=== PATIENT | male | born 1940 | race Caucasian/White ===

== ENCOUNTER 2017-09-07 06:00 | Day surgery (SDC) | payer OTHER ==
[~2017-09-07 06:00] MED LIST: ACETAMINOPHEN 325 MG TABLET (FP) PO PRN
[2017-09-07 06:17] VITALS: TEMP 97.6
[2017-09-07 06:21] VITALS: BMI 29.5
[2017-09-07] MEDS ORDERED: FLURBIPROFEN 0.03% OPHTH SOLN 2.5 ML BOTTLE ONE (06:32)
[2017-09-07] MEDS ORDERED: CYCLOPENTOLATE HCL 1% OPHTH SOLN 2 ML BOTTLE ONE (06:32)
[2017-09-07] MEDS ORDERED: PHENYLEPHRINE 2.5% OPHTH SOLN 15 ML BOTTLE ONE (06:32)
[2017-09-07] MEDS ORDERED: TROPICAMIDE 1% OPHTH SOLN 15 ML BOTTLE ONE (06:32)
[2017-09-07] MEDS ORDERED: CIPROFLOXACIN 0.3% EYE DROPS 5 ML BOTTLE ONE (06:32)
[2017-09-07] MEDS: CYCLOPENTOLATE HCL 1% OPHTH SOLN 2 ML BOTTLE OP SCH ×3 (06:42→07:08)
[2017-09-07] MEDS: CIPROFLOXACIN HCL 0.3% OPHTH 2.5ML BOTTLE OP SCH ×3 (06:42→07:08)
[2017-09-07] MEDS: PHENYLEPHRINE 2.5% OPHTH SOLN 15 ML BOTTLE OP SCH ×3 (06:42→07:09)
[2017-09-07] MEDS: FLURBIPROFEN 0.03% OPHTH SOLN 2.5 ML BOTTLE OP SCH ×3 (06:42→07:08)
[2017-09-07] MEDS: TROPICAMIDE 1% OPHTH SOLN 15 ML BOTTLE OP SCH ×3 (06:42→07:09)
[2017-09-07] MEDS ORDERED: VANCOMYCIN 500 MG VIAL (RESTRICTED TO ID ONLY) ONE (07:27)
[2017-09-07] MEDS ORDERED: LIDOCAINE HCL 2% JELLY (5 ML/TUBE) ONE (07:27)
[2017-09-07] MEDS ORDERED: EPINEPHrine/PF 1 MG/1 ML (1:1,000) AMPULE ONE (07:27)
[2017-09-07] MEDS ORDERED: TRYPAN BLUE 0.5 ML DISP.SYRIN ONE (07:27)
[2017-09-07] MEDS ORDERED: WATER FOR INJ,STERILE 10 ML ONE (07:27)
[2017-09-07] MEDS ORDERED: LIDOCAINE HCL/PF 1% SDV 5ML VIAL ONE (07:27)
[2017-09-07] MEDS ORDERED: POVIDONE-IODINE 5% OPHTHALMIC PREP 30 ML SOLUTION ONE (07:28)
[2017-09-07] MEDS ORDERED: ePHEDrine SULFATE 50 MG/1 ML AMPULE ONE (07:40)
[2017-09-07] MEDS ORDERED: SUCCINYLCHOLINE CHLORIDE 200 MG/10 ML VIAL ONE (07:40)
[2017-09-07] MEDS ORDERED: LIDOCAINE HCL/PF 2% SDV 5ML VIAL ONE (07:40)
[2017-09-07] MEDS ORDERED: DEXAMETHASONE SOD PHOSPHATE 4 MG/1 ML VIAL ONE (07:40)
[2017-09-07] MEDS ORDERED: PROPOFOL 20 ML ONE ×2 (07:40)
[2017-09-07] MEDS ORDERED: MIDAZOLAM HCL 2 MG/2 ML SINGLE DOSE VIAL ONE (07:40)
[2017-09-07] MEDS ORDERED: SODIUM CHLORIDE 0.9% P/F 10 ML VIAL IJ ONE (07:43)
[2017-09-07] MEDS ORDERED: LIDOCAINE HCL 2% JELLY (5 ML/TUBE) TP ONE (07:59)
[2017-09-07] MEDS ORDERED: POVIDONE-IODINE 5% OPHTHALMIC PREP 30 ML SOLUTION OD ONE (08:10)
[2017-09-07] MEDS ORDERED: CHONDROITIN SU A/HYALUR SOD 1 KIT IO ONE (08:17)
[2017-09-07] MEDS ORDERED: BSS (NA/CA/MG/K) BALANCED SALT SOLUTION OPHTH SOLN 15 ML BOTTLE OD ONE (08:17)
[2017-09-07] MEDS ORDERED: TRYPAN BLUE 0.5 ML DISP.SYRIN IO ONE (08:17)
[2017-09-07] MEDS ORDERED: LIDOCAINE HCL 1% PRESERVATIVE FREE - 30ML VIAL IO ONE (08:17)
[2017-09-07] MEDS ORDERED: EPINEPHrine/PF 1 MG/1 ML (1:1,000) AMPULE IO ONE (08:25)
--- NOTE | 2017-09-07 09:28 | SPEC ---
DATE OF SURGERY: 09/07/2017 OPERATION: Phacoemulsification of right cataract, capsular staining with Trypan blue and intraocular lens implantation, lens used [id number], 22.0 Diopter power, Serial No. [id number]. PREOPERATIVE DIAGNOSIS: Mature cataract right eye. POSTOPERATIVE DIAGNOSIS: Mature cataract right eye. SURGEON: Syed Barrientos M.D. ANESTHESIA: Topical MAC. COMPLICATIONS: None. PROCEDURE: The patient was brought to the operating room and correctly identified along with the operative site as well as correct intraocular lens ulrich. The patient was then prepped and draped in the usual sterile fashion including 5% Betadine solution in the conjunctival sac and an eyelid drape. An eyelid speculum was then placed into the operative eye. The eye was inspected and a poor red reflex was noted. A paracentesis port was created and .5 mL of intracameral preservative-free Lidocaine 1% was given. Beneath an air bubble, the capsule was then stained with Trypan blue. The Trypan blue was then irrigated from the eye with balanced salt solution (BBS). Viscoelastic was injected to inflate the anterior chamber. A temporal clear corneal would was created. A continuous circular capsulorrhexis was performed. The nucleus was then hydro-dissected and hydro-delineated was BSS and removed with phacoemulsification via [id number] approach. The remaining cortical material was irrigated and aspirated from the eye. Viscoelastic was injected in the anterior chamber to inflate the capsular bag. The intraocular lens was then injected into the bag. The Viscoelastic was irrigated and aspirated from the eye. All wounds were tested and found to be watertight. No suture was placed. The intraocular lens was noted to be well centered and covered by the anterior capsular border. Topical Vancomycin was given. The eye was patched and shielded. The patient was discharged from the operating room in stable condition. Ion [id number]
[2017-09-07 09:49] VITALS: BP 123/63; PULSE 84
== END 2017-09-07 09:49 | disposition home or self-care (01) ==
LOC: JASU-SURG 06:00
PROVIDERS: ATTEND Ophthalmology
PROC: 08RJ3JZ Replacement of Right Lens with Synthetic Substitute, Percutaneous Approach (ICD-10-PCS; principal; 2017-09-07 10:00)
DX: H25.091 Other age-related incipient cataract, right eye (principal); H57.8 Other specified disorders of eye and adnexa

== ENCOUNTER 2019-06-28 05:18 | Day surgery (SDC) | payer OTHER ==
[2019-06-27 17:58] VITALS: BMI 29.1
[~2019-06-28 05:18] MED LIST changes: -ACETAMINOPHEN 325 MG TABLET (FP) PO PRN; +LIDOCAINE HCL 1%, 10 MG/ML (20ML VIAL) PNB ONE
[2019-06-28] MEDS ORDERED: LIDOCAINE HCL 1%, 10 MG/ML (20ML VIAL) ONE (12:28)
[2019-06-28] MEDS ORDERED: LIDOCAINE HCL 1%, 10 MG/ML (20ML VIAL) PNB ONE (13:45)
[2019-06-28] MEDS ORDERED: MIDAZOLAM HCL 2 MG/2 ML SINGLE DOSE VIAL ONE (13:57)
[2019-06-28] MEDS ORDERED: PROPOFOL 20 ML ONE (13:59)
[2019-06-28] MEDS ORDERED: SUCCINYLCHOLINE CHLORIDE 200 MG/10 ML SYRINGE ONE (14:00)
[2019-06-28] MEDS ORDERED: ceFAZolin SODIUM 1 GM VIAL ONE (14:08)
--- NOTE | 2019-06-28 15:02 | OP ---
Operative Note - Note: Operative Date: 06/28/19 Pre-Operative Diagnosis: right temporal artery aneurysm Operation: excision of right temporal artery aneurysm Post-Operative Diagnosis: Same as Pre-op Surgeon: Pavel Benites Anesthesia: General Estimated Blood Loss (mls): 30 Operative Report Dictated: Yes
--- NOTE | 2019-06-28 15:04 | HP ---
Admitting History and Physical - Admission Chief Complaint: right temporal artery aneurysm after fall 1 month ago Limitations to Obtaining History: No Limitations - Smoking History Smoking history: Never smoked Have you smoked in the past 12 months: No - Alcohol/Substance Use Hx Alcohol Use: Yes (occasion) Home Medications - Allergies Allergies/Adverse Reactions: Allergies Allergy/AdvReac Type Severity Reaction Status Date / Time No Known Allergies Allergy Verified 06/28/19 10:44 - Home Medications Home Medications: Ambulatory Orders Amlodipine Besylate 10 mg PO HS 06/06/19 Apixaban [Eliquis -] 2.5 mg PO BID 06/06/19 Atorvastatin Ca [Lipitor] 80 mg PO DAILY 06/06/19 Cholecalciferol (Vitamin D3) [Vitamin D -] 1,000 mg PO DAILY 06/06/19 Dapagliflozin Propanediol [Farxiga] 5 mg PO DAILY 06/06/19 Fenofibrate,Micronized [Fenofibrate] 1 tab PO HS 06/06/19 Glimepiride [Amaryl -] 4 mg PO BID 06/06/19 Insulin (Novolog) [Novolog -] 8 units SQ BID 06/06/19 Insulin (Novolog) [Novolog -] 10 units SQ DAILY 06/06/19 Insulin Detemir [Levemir Flextouch] 22 units SQ HS 06/06/19 Losartan-Hctz 100-25 mg Tab 1 tab PO DAILY 06/06/19 Metoprolol Succinate 1 tab PO HS 06/06/19 Ramipril 10 mg PO DAILY 06/06/19 Ranolazine [Ranexa -] 500 mg PO BID 06/06/19 Review of Systems - Review of Systems Constitutional: reports: No Symptoms Eyes: reports: No Symptoms HENT: reports: No Symptoms Neck: reports: No Symptoms Cardiovascular: reports: No Symptoms Respiratory: reports: No Symptoms Gastrointestinal: reports: No Symptoms Genitourinary: reports: No Symptoms Musculoskeletal: reports: No Symptoms Integumentary: reports: No Symptoms Neurological: reports: No Symptoms Endocrine: reports: No Symptoms Hematology/Lymphatic: reports: No Symptoms Psychiatric: reports: No Symptoms Physical Examination Vital Signs: Vital Signs Temperature Pulse Rate Respiratory Rate Blood Pressure O2 Sat by Pulse Oximetry (%) 98 06/28/19 10:51 Constitutional: Yes: Well Nourished, No Distress, Calm Eyes: Yes: WNL, Conjunctiva Clear, EOM Intact HENT: Yes: WNL, Atraumatic, Normocephalic Neck: Yes: WNL, Supple, Trachea Midline Cardiovascular: Yes: WNL, Regular Rate and Rhythm Respiratory: Yes: WNL, Regular, CTA Bilaterally Gastrointestinal: Yes: WNL, Normal Bowel Sounds Musculoskeletal: Yes: WNL Extremities: Yes: WNL Edema: No Peripheral Pulses WNL: Yes Integumentary: Yes: WNL Neurological: Yes: WNL, Alert, Oriented ...Motor Strength: WNL Psychiatric: Yes: WNL Problem List - Problems (1) Aneurysm of superficial temporal artery Assessment/Plan: for right temporal artery aneurysm excision Code(s): I72.8 - ANEURYSM OF OTHER SPECIFIED ARTERIES
[2019-06-28 15:55] VITALS: TEMP 97.5
[2019-06-28 16:26] VITALS: BP 154/67; PULSE 64
--- NOTE | 2019-07-01 20:25 | OP ---
DATE OF OPERATION: 06/28/2019 PREOPERATIVE DIAGNOSIS: Right temporal artery aneurysm. POSTOPERATIVE DIAGNOSIS: Right temporal artery aneurysm. PROCEDURE: Excision of right temporal artery aneurysm. SURGEON: Pavel Cerda DO ANESTHESIA: General. BLOOD LOSS: 20 mL. The patient is an 79-year-old male who had a traumatic fall on the sidewalk about 3-1/2 weeks ago, where he hit the right side of his head on the ground. He then developed this temporal artery aneurysm on the right side of his forehead. He came to multiple appointments to see us in vascular clinic but the aneurysm is not getting smaller and it was decided that he would want it excised. The patient was consented for the procedure, understanding all risks, benefits and alternatives. He was then taken to the operating room. Once in the operating room, he was laid on the operating table in supine manner and the right temporal region was prepped and draped in a sterile surgical manner. Patient was, at this time, administered general anesthesia. We then went ahead and made a 4-cm incision transverse incision over the aneurysm. Bovie electrocautery was used to control hemostasis, and we were able to dissect through all the subcutaneous tissue and down to the fascia. Once that was performed, we saw the aneurysm in the artery with some hematoma and we were able to excise the aneurysm using Bovie electrocautery. There was no bleeding. All bleeding was controlled using Bovie electrocautery. There was minimal bleeding. The hematoma and aneurysm was well encapsulated and the capsule was removed. The wound was well irrigated. A 3-0 Vicryl was used and the subcutaneous tissue was approximated in an interrupted manner. A piece of Surgicel was also placed inside the wound. Prior to that, the skin was closed with 4-0 Biosyn in a subcuticular running fashion. Once closed, bacitracin was placed and 2 simple Steri-Strips, 4 x 4, Tegaderms were placed. Patient tolerated this procedure with no complications. Patient transferred back in stable condition. Total blood loss 20 mL. PAVEL CERDA DO MECHANIC/[id number]
--- NOTE | 2019-07-03 15:31 | PATH ---
Surgical Pathology Report Patient Name: MATT PAULSON [facility]. Rec. #: [id number] /Age/Gender: 1940 (Age: 79) / M Account: [id number] Location: [facility] SUR[facility]ICAL Taken: 06/29/2019 Received: 06/29/2019 Reported: 07/03/2019 Physicians: Pavel Benites Specimen(s) Received REMOVED TISSUE FROM TEMPORAL ARTERY BIOPSY Clinical History Right temporal artery aneurysm Final Diagnosis REMOVED TISSUE, TEMPORAL ARTERY, RIGHT, EXCISION: FIBROVASCULAR TISSUE WITH MODERATE TO SEVERE CALCIFIC ATHEROSCLEROSIS, CHRONIC INFLAMMATION, REACTIVE CHANGES, AND ORGANIZED BLOOD/FIBRIN CLOT. FIBROADIPOSE AND FIBROMUSCULAR TISSUE PRESENT. Electronically Signed Aleyda Pozo M.D. Gross Description Received in formalin labeled "removed tissue from right temporal artery," is a 2.0 x 1.7 x 0.3 cm aggregate of valladares-brown fragments of fibrous tissue and blood clot. The specimen is entirely submitted in one cassette. /06/29/2019 saudi06/29/2019
== END 2019-06-28 16:46 | disposition home or self-care (01) ==
LOC: JASU-SURG 05:18
PROVIDERS: ATTEND Surgery Vascular Surgery
PROC: 03B Upper Arteries, Excision (ICD-10-PCS; principal; 2019-06-28 15:20)
DX: I72.8 Aneurysm of other specified arteries (principal); I10 Essential (primary) hypertension; E11.9 Type 2 diabetes mellitus without complications; I48.91 Unspecified atrial fibrillation
CPT/HCPCS: 82962; 88305-TC; 94760

== ENCOUNTER 2019-08-19 22:04 | Inpatient (IN) | payer OTHER ==
--- NOTE | 2019-08-19 22:08 | PDOC ---
History of Present Illness - General Stated Complaint: SOB Time Seen by Provider: 08/19/19 22:07 History Source: Patient Exam Limitations: No Limitations - History of Present Illness Initial Comments: Pt is an 79 yo M, with PMH of HTN, HDL, IDDM (last A1C 7.1), CAD (s/p CABG, stents x2), and hypothyroidism, who is presenting with complaints of SOB on exertion and non-productive cough since yesterday. Pt can normally ambulate around the house without difficulty, but tonight he had SOB while going from room to room, and felt "a wheeze in my chest that came up to my throat" as he was lying in bed. Pt denies any recent fevers/chills, headache, vision changes, syncope, chest pain, palpitations, orthopnea/PND, nausea/vomiting, abdominal pain, urinary symptoms, diarrhea/constipation, or leg swelling from baseline. Allergies: NKDA PCP: Dr. Neymar Medrano Cards: Dr. Peña (stents placed by Dr. Bolivar, [facility]) Social: Pt denies any cigarette, alcohol, or drug use. Pt denies any recent travel or sick contacts. Surgical: R temporal artery aneurysm removal (Dr. Benites) Family: no relevant history. 08/20/19 01:22 Past History - Travel Traveled outside of the country in the last 30 days: No Close contact w/someone who was outside of country & ill: No - Past Medical History Allergies/Adverse Reactions: Allergies Allergy/AdvReac Type Severity Reaction Status Date / Time No Known Allergies Allergy Verified 06/28/19 10:44 Home Medications: Ambulatory Orders Amlodipine Besylate 10 mg PO HS 06/06/19 Apixaban [Eliquis -] 2.5 mg PO BID 06/06/19 Atorvastatin Ca [Lipitor] 80 mg PO DAILY 06/06/19 Cholecalciferol (Vitamin D3) [Vitamin D -] 1,000 mg PO DAILY 06/06/19 Dapagliflozin Propanediol [Farxiga] 5 mg PO DAILY 06/06/19 Fenofibrate,Micronized [Fenofibrate] 1 tab PO HS 06/06/19 Glimepiride [Amaryl -] 4 mg PO BID 06/06/19 Insulin (Novolog) [Novolog -] 8 units SQ BID 06/06/19 Insulin (Novolog) [Novolog -] 10 units SQ DAILY 06/06/19 Insulin Detemir [Levemir Flextouch] 22 units SQ HS 06/06/19 Losartan-Hctz 100-25 mg Tab 1 tab PO DAILY 06/06/19 Metoprolol Succinate 1 tab PO HS 06/06/19 Ramipril 10 mg PO DAILY 06/06/19 Ranolazine [Ranexa -] 500 mg PO BID 06/06/19 Levothyroxine [Synthroid -] 1 tab PO DAILY 08/17/19 Anemia: No Asthma: No Cancer: No Cardiac Disorders: Yes (STENT X2, CA X2) CVA: No COPD: No CHF: No Dementia: No Diabetes: Yes (IDDM) GI Disorders: No Disorders: No HTN: Yes Hypercholesterolemia: Yes Liver Disease: No Seizures: No Thyroid Disease: Yes - Surgical History Cardiac Surgery: No Cholecystectomy: Yes (OPEN) Lung Surgery: Yes (S/P CARDIAC STENTING) Neurologic Surgery: No Orthopedic Surgery: Yes (RT KNEE ARTHROSCOPY) - Immunization History Immunization Up to Date: Yes - Psycho Social/Smoking Cessation Hx Smoking History: Never smoked Have you smoked in the past 12 months: No Hx Alcohol Use: Yes (occasion) Drug/Substance Use Hx: No Substance Use Type: None Hx Substance Use Treatment: No Respiratory Specific PMHX - Complaint Specific PMHX Angina: Yes Bronchitis: No Pneumonia: No Pulmonary Embolus: No TB (Tuberculosis): No Review of Systems - Review of Systems Able to Perform ROS?: Yes Is the patient limited Greek proficient: No Constitutional: Yes: Weight Stable. No: Chills, Diaphoresis, Fever, Loss of Appetite, Malaise, Weakness HEENTM: No: Recent change in vision, Nose Congestion, Throat Pain, Throat Swelling, Difficulty Swallowing Respiratory: Yes: Cough, Shortness of Breath, Wheezing. No: Orthopnea, Stridor , Productive cough, Hemoptysis Cardiac (ROS): No: Chest Pain, Edema, Irregular Heart Rate, Lightheadedness, Palpitations, Syncope, Chest Tightness ABD/GI: No: Constipated, Diarrhea, Nausea, Poor Appetite, Poor Fluid Intake, Vomiting : No: Burning, Dysuria, Frequency, Flank Pain, Hematuria, Pain, Urgency Musculoskeletal: No: Back Pain, Joint Pain, Muscle Pain, Muscle Weakness Integumentary: No: Rash, Sweating Neurological: No: Headache, Numbness, Weakness, Unsteady Gait, Dizziness Psychiatric: No: Sleep Pattern Change, Change in Appetite Endocrine: No: Increased Urine, Change in Weight Hematologic/Lymphatic: No: Anemia, Blood Clots, Easy Bleeding, Easy Bruising All Other Systems: Reviewed and Negative *Physical Exam - Physical Exam Comments: Hypertensive, hypoxic (88% on RA, improved to 92% on 4 L NC on exam). Pt in NAD , obese body habitus/central obesity. Pt alert and oriented x3. fluid dynamicist generally intact, muscular strength and sensation intact. No midline spinal tenderness, step-offs, or crepitus. Head normocephalic, atraumatic. Eyes PERRLA, EOMI. Oropharynx without erythema or exudates, no LAD b/l. No nasal congestion. Hearing intact. Clear heart sounds, S1/S2, no JVD, b/l pedal edema, or heart murmur. Coarse lung sounds b/l bases with mild expiratory wheezing. Abdominal breathing noted. No abdominal or CVA tenderness to palpation, no rebound, no guarding. Abdomen soft, non-distended, and with normoactive bowel sounds. Skin without jaundice or rash. 08/20/19 01:36 Vital Signs - Vital Signs #1 Blood Pressure: 177/97 MAP: 123 BP Location: Right Arm Blood Pressure Position: Sitting Pulse Rate: 73 Respiratory Rate: 20 Temperature: 97.8 F Temperature Source: Oral O2 Sat by Pulse Oximetry (%): 92 Oxygen Delivery Method: Nasal Cannula Oxygen Flow Rate: 4 Heart Score/ECG Review - History History: Slightly suspicious - Electrocardiogram EKG: Normal - Age Age: >/= 65 - Risk Factors Risk Factors Heart Score: Yes Hx Hypercholesterolemia, Yes Hx Hypertension, Yes Hx Diabetes, Yes Hx Obesity Based on the list above the patient has:: >/=3 risk factors or Hx atherosclerotic disease - Troponin Troponin: 1-3x normal limit - Score Heart Score - Total: 5 ED Treatment Course - LABORATORY CBC & Chemistry Diagram: 08/19/19 23:20 08/19/19 23:20 Medical Decision Making - Medical Decision Making Pt was seen at bedside, also will be seen by attending Dr. Muñoz. Pt presenting with SOB on exertion, wheezing. No recent travel or surgeries, responsive to oxygenation. Will evaluate for CHF vs infection vs pleural effusion vs ACS vs electrolyte abnormalities. Provided 0.4 SL NG for improvement of SOB and likely fluid overload. Will continue to reassess pt and monitor for symptomatic improvement. ECG: Afib (HR 63, QTc 458). No TWIs or significant ST segment changes. Prior ECG was no Afib with QTc prolongation present (05/10/2015). 08/20/19 01:53 CBC generally WNL; mildly elevated WBC at 11 CMP WNL BNP 2426 Trop .07 (pt does not clear troponin) Chest x-ray with vascular congestion -- providing 40 mg IV lasix PT admitted to PCP (Dr Medrano) for CHF exacerbation and further cardiac monitoring. Needs cardiology consultation due to symptoms and HEART score elevation. Pt hypoxia and HTN improving after interventions. Pt hemodynamically stable and states his breathing is starting to feel better. 08/20/19 01:55 Discharge - Discharge Information Problems reviewed: Yes Clinical Impression/Diagnosis: CHF (congestive heart failure) Qualifiers: Heart failure type: unspecified Heart failure chronicity: acute on chronic Qualified Code(s): I50.9 - Heart failure, unspecified Atrial fibrillation Qualifiers: Atrial fibrillation type: unspecified chronic Qualified Code(s): I48.20 - Chronic atrial fibrillation, unspecified; I48.2 - Chronic atrial fibrillation Condition: Stable - Admission Yes - Follow up/Referral - Patient Discharge Instructions - Post Discharge Activity
--- NOTE | 2019-08-19 22:23 | PDOC ---
Attending Attestation - Resident Resident Name: NadirYesica - ED Attending Attestation I have performed the following: I have examined & evaluated the patient, The case was reviewed & discussed with the resident, I agree w/resident's findings & plan - HPI HPI: 08/20/19 01:48 Pt comes with SOB x 2 days; Known afib; he is compliant with his meds. He ate no salty foods, as far as he can recall; he has no fever or chills, cough or ill contacts. He has no other complaints. +Leg swelling; no recent travel 08/20/19 01:49 Pt never smoked cigarettes. - Physicial Exam PE: 08/20/19 01:50 Agree with resident exam - Medical Decision Making 08/20/19 01:52 Pt will get sono of his legs bilaterally. Labs demonstrate CHF exacerbation BNP is 2000s Trop is 0.07, however CPK is 30 08/20/19 01:55 CXR shows patchy effusions. Pt is improved on O2. He has been admitted to his PMD [facility] to tele inpatient. Heart Score/ECG Review - ECG Intrepretation Rhythm: Irregularly Irregular - [place]: Normal - P and ID Prominent R with upright T in V1 (true posterior [place]): No Delta Wave(s) Present: No WPW: No - QRS Poor R Wave Progression: No Q Wave Present: No - ST and T Early Repolarization: No Non Specific ST-T Wave changes: No Flattened T Waves: No Prolonged Q-T Interval: No - ECG Impressions Normal ECG: No Non-specific ST Elevation: No Ischemic Changes: No Bradycardia: No Tachycardia: Afib w/controlled rate
[2019-08-19] MEDS ORDERED: NITROGLYCERIN SUBLINGUAL 1/150 0.4 MG TAB SL ONE (23:31)
[2019-08-19 23:35] LABS: BASO % 1.6 % (0-2.0); EOS % 1.9 % (0-4.5); HEMATOCRIT 38.2 % (35.4-49); HEMOGLOBIN 12.9 GM/dL (11.7-16.9); LYMPH % 6.6 % (8-40); MCH 32.5 pg (25.7-33.7); MCHC 33.8 g/dl (32.0-35.9); MEAN PLT VOLUME 9.9 fl (7.5-11.1); MONO % 8.9 % (3.8-10.2); PLATELET COUNT 302 K/MM3 (134-434); RBC 3.98 M/mm3 (4.00-5.60); RDW 14.9 % (11.9-15.9)
[2019-08-19] MEDS ORDERED: ASPIRIN 81 MG CHEWABLE TABLETS PO ONE (23:35)
[2019-08-19 23:41] LABS: INR 1.63 (0.83-1.09); PROTHROMBIN TIME (PATIENT) 19.3 SEC (9.7-13.0)
[2019-08-19 23:43] LABS: ACTIVATED PTT 41.6 SECONDS (25.2-36.5); ARTERIAL BLD GAS O2 SATURATION 88.9 % (95-98); ARTERIAL BLOOD GAS BASE EXCESS -1.8 meq/l (-2-2); ARTERIAL BLOOD GAS PCO2 33.3 mmHg (35-45); ARTERIAL BLOOD GAS PO2 59.4 mmHg (80-100); ARTERIAL BLOOD GAS pH 7.42 (7.35-7.45); CARBOXYHEMOGLOBIN 1.2 % (0-2)
[2019-08-19 23:44] LABS: ALLENS TEST POSITIVE
[2019-08-19] MEDS ORDERED: ASPIRIN 81 MG CHEWABLE TABLETS ONE (23:44)
[2019-08-20 00:08] LABS: BLOOD UREA NITROGEN 21.4 mg/dL (7-18); CREATININE 1.3 mg/dL (0.55-1.3)
[2019-08-20 00:09] LABS: ALBUMIN 3.8 g/dl (3.4-5.0); BILIRUBIN,TOTAL 0.7 mg/dL (0.2-1); CALCIUM 9.3 mg/dL (8.5-10.1); N-TERMINAL BNP 2426.8 pg/ml (5-450); POTASSIUM 4.1 mmol/L (3.5-5.1)
[2019-08-20] MEDS ORDERED: FUROSEMIDE 40 MG/4 ML INJECTABLE VIAL IVPUSH ONE (00:18)
[2019-08-20] MEDS ORDERED: FUROSEMIDE 40 MG/4 ML INJECTABLE VIAL ONE (00:33)
[2019-08-20] MEDS: LEVOTHYROXINE NA 25 MCG TABLET (FP) PO SCH (07:50)
[2019-08-20] MEDS: INSULIN SLIDING SCALE (NOVOLOG) 1 VIAL SQ SCH ×4 (08:19→22:20)
[2019-08-20 09:02] LABS: HEMATOCRIT 37.5 % (35.4-49); HEMOGLOBIN 12.6 GM/dL (11.7-16.9); MCH 32.3 pg (25.7-33.7); MCHC 33.7 g/dl (32.0-35.9); MEAN CELL VOLUME 95.8 fl (80-96); MEAN PLT VOLUME 9.2 fl (7.5-11.1); PLATELET COUNT 300 K/MM3 (134-434); RBC 3.91 M/mm3 (4.00-5.60); RDW 14.9 % (11.9-15.9); WHITE BLOOD COUNT 8.1 K/mm3 (4.0-10.0)
[2019-08-20 09:32] LABS: BILIRUBIN,TOTAL 0.9 mg/dL (0.2-1); BLOOD UREA NITROGEN 19.1 mg/dL (7-18); CALCIUM 9.6 mg/dL (8.5-10.1); CREATININE 1.3 mg/dL (0.55-1.3); POTASSIUM 3.7 mmol/L (3.5-5.1); TOT PROT 7.2 g/dl (6.4-8.2)
[2019-08-20] MEDS ORDERED: PATIENT'S OWN MEDICATION (NON-FORMULARY) (Dapagliflozin Propanediol [Farxiga] 5 MG) PO SCH (10:00)
--- NOTE | 2019-08-20 10:16 | EKG ---
Test Reason : Blood Pressure : / mmHG Vent. Rate : 063 BPM Atrial Rate : 061 BPM P-R Int : 000 ms QRS Dur : 082 ms QT Int : 448 ms P-R-T Axes : 000 035 083 degrees QTc Int : 458 ms ATRIAL FIBRILLATION ABNORMAL ECG WHEN COMPARED WITH ECG OF 10-MAY-2015 22:54, ATRIAL FIBRILLATION HAS REPLACED SINUS RHYTHM Confirmed by PEPITO SADLER MD ([id number]) on 08/20/2019 10:15:44 AM Referred By: Confirmed By:PEPITO SADLER MD
[2019-08-20] MEDS: LOSARTAN POTASSIUM 50 MG TABLET (FP) PO SCH (11:00)
[2019-08-20] MEDS: CHOLECALCIFEROL (VIT D3) 1,000 UNIT (25 MCG) TABLET PO SCH (11:00)
[2019-08-20] MEDS: RANOLAZINE E.R. 500 MG TABLET (FP) PO SCH ×2 (11:00→22:23)
[2019-08-20] MEDS: APIXABAN 2.5 MG TABLET PO SCH ×2 (11:00→22:22)
--- NOTE | 2019-08-20 11:13 | CON.CARD ---
Consult Consult Specialty:: Cardiology Referred by:: ER Reason for Consultation:: Cardiac evaluation - History of Present Illness Chief Complaint: Shortness of breath History of Present Illness: Patient is an 79 year old male well known to our service (sees Dr. Britta Renner) with underlying history of CAD s/p [place] PCI/stent (BMS to LAD, OPAL to mid LCX, HTN, hypercholesterolemia, DM, class 0-1 NYHA classification LV diastolic failure, persistent asymptomatic AF [id number] score or 6 on DOAC ( Eliquis), mild mitral valve stenosis, mild mitral and tricuspid regurgitation, mild to moderate pulmonary HTN, carotid stenosis (mild) and hypothyroidism who presented to ED with shortness of breath on exertion and nonproductive cough this past weekend. He denies chest pain or palpitations. After being given IV Lasix, he feels better this morning. He denies paroxysmal nocturnal dyspnea or orthopnea. He denies fever or chills. He denies nausea, vomiting, diarrhea or abdominal pain. He denies headache or lightheadedness. 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: Other (temporal artery aneurysm) Cardio/Vascular: Yes: AFIB, CAD, CHF, HTN, Hyperlipdemia, Mitral Insufficiency, Mitral Stenosis, Pulmonary Hypertension Endocrine: Yes: Diabetes Mellitus Dermatology: Yes: Basal Cell - Past Surgical History Past Surgical History: Yes: Cholecystectomy, Stent Additional Surgical History: Removal of temporal artery aneurysm - Alcohol/Substance Use Hx Alcohol Use: Yes (occasion) - Smoking History Smoking history: Never smoked Have you smoked in the past 12 months: No Home Medications - Allergies Allergies/Adverse Reactions: Allergies Allergy/AdvReac Type Severity Reaction Status Date / Time No Known Allergies Allergy Verified 06/28/19 10:44 - Home Medications Home Medications: Ambulatory Orders Amlodipine Besylate 10 mg PO HS 06/06/19 Apixaban [Eliquis -] 2.5 mg PO BID 06/06/19 Atorvastatin Ca [Lipitor] 80 mg PO DAILY 06/06/19 Cholecalciferol (Vitamin D3) [Vitamin D -] 1,000 mg PO DAILY 06/06/19 Dapagliflozin Propanediol [Farxiga] 5 mg PO DAILY 06/06/19 Fenofibrate,Micronized [Fenofibrate] 1 tab PO HS 06/06/19 Glimepiride [Amaryl -] 4 mg PO BID 06/06/19 Insulin (Novolog) [Novolog -] 8 units SQ BID 06/06/19 Insulin (Novolog) [Novolog -] 10 units SQ DAILY 06/06/19 Insulin Detemir [Levemir Flextouch] 22 units SQ HS 06/06/19 Losartan-Hctz 100-25 mg Tab 1 tab PO DAILY 06/06/19 Metoprolol Succinate 1 tab PO HS 06/06/19 Ramipril 10 mg PO DAILY 06/06/19 Ranolazine [Ranexa -] 500 mg PO BID 06/06/19 Levothyroxine [Synthroid -] 1 tab PO DAILY 08/17/19 Family Medical History Family Hx Cardiac Disorders: Mother Review of Systems - Review of Systems Constitutional: denies: Chills, Fever Cardiovascular: reports: Shortness of Breath. denies: Chest Pain, Palpitations Respiratory: reports: Cough, SOB, SOB on Exertion. denies: Hemoptysis, Orthopnea, PND, Wheezing Gastrointestinal: denies: Abdominal Pain, Constipation, Diarrhea, Melena, Nausea , Rectal Bleeding, Vomiting Genitourinary: denies: Dysuria, Hematuria Musculoskeletal: denies: Back Pain, Joint Pain Neurological: denies: Dizziness, Headache, Seizure, Syncope Vital Signs: Vital Signs Temperature 97.3 F L 08/20/19 11:07 Pulse Rate 60 08/20/19 11:07 Respiratory Rate 20 08/20/19 11:07 Blood Pressure 176/72 H 08/20/19 11:07 O2 Sat by Pulse Oximetry (%) 95 08/20/19 11:07 Eyes: Yes: PERRL HENT: Yes: Atraumatic Neck: Yes: Supple Respiratory: Yes: Diminished Gastrointestinal: Yes: Normal Bowel Sounds, Soft. No: Tenderness Cardiovascular: Yes: Pulse Irregular JVD: No PMI: Non-Displaced Heart Sounds: Yes: S1, S2 Murmur: Yes: Systolic Murmur, Grade 1 Peripheral Pulses WNL: No - Other Data Labs, Other Data: CBC, BMP 08/20/19 08:38 08/20/19 08:38 INR, PTT INR 1.63 (0.83-1.09) H 08/19/19 23:20 Troponin, BNP 08/19/19 08/20/19 23:20 08:38 Troponin I 0.07 H 0.07 H B-Natriuretic Peptide 2426.8 H Laboratory Results - last 24 hr 08/19/19 08/19/19 08/19/19 23:20 23:20 23:20 WBC 11.0 H RBC 3.98 L Hgb 12.9 Hct 38.2 MCV 96.0 MCH 32.5 MCHC 33.8 RDW 14.9 Plt Count 302 MPV 9.9 Absolute Neuts (auto) 8.9 H Neutrophils % 81.0 D Lymphocytes % 6.6 L D Monocytes % 8.9 Eosinophils % 1.9 Basophils % 1.6 Nucleated RBC % 0 PT with INR INR PTT (Actin FS) Anticoagulation Therapy No Result Required. Puncture Site No Result Required. ABG pH 7.42 ABG pCO2 at Pt Temp 33.3 L ABG pO2 at Pt Temp 59.4 L ABG HCO3 21.2 L ABG O2 Sat (Measured) 88.9 L ABG O2 Content 20.9 ABG Base Excess -1.8 Dereje Test Positive Carboxyhemoglobin 1.2 Methemoglobin < 1.0 O2 Delivery Device No Result Required. Oxygen Flow Rate No Result Required. Vent Mode No Result Required. Vent Rate No Result Required. Mechanical Rate No Result Required. Pressure Support Vent No Result Required. Sodium 142 Potassium 4.1 Chloride 108 H Carbon Dioxide 25 Anion Gap 10 BUN 21.4 H Creatinine 1.3 Est GFR (CKD-EPI)AfAm 59.31 Est GFR (CKD-EPI)NonAf 51.17 POC Glucometer Random Glucose 193 H Calcium 9.3 Total Bilirubin 0.7 AST 16 ALT 22 Alkaline Phosphatase 90 Creatine Kinase 30 Troponin I 0.07 H B-Natriuretic Peptide 2426.8 H Total Protein 7.0 Albumin 3.8 TSH 3.46 D 08/19/19 08/20/19 08/20/19 23:20 07:50 08:38 WBC 8.1 RBC 3.91 L Hgb 12.6 Hct 37.5 MCV 95.8 MCH 32.3 MCHC 33.7 RDW 14.9 Plt Count 300 MPV 9.2 Absolute Neuts (auto) Neutrophils % Lymphocytes % Monocytes % Eosinophils % Basophils % Nucleated RBC % PT with INR 19.30 H INR 1.63 H PTT (Actin FS) 41.6 H Anticoagulation Therapy Puncture Site ABG pH ABG pCO2 at Pt Temp ABG pO2 at Pt Temp ABG HCO3 ABG O2 Sat (Measured) ABG O2 Content ABG Base Excess Dereje Test Carboxyhemoglobin Methemoglobin O2 Delivery Device Oxygen Flow Rate Vent Mode Vent Rate Mechanical Rate Pressure Support Vent Sodium Potassium Chloride Carbon Dioxide Anion Gap BUN Creatinine Est GFR (CKD-EPI)AfAm Est GFR (CKD-EPI)NonAf POC Glucometer 127 Random Glucose Calcium Total Bilirubin AST ALT Alkaline Phosphatase Creatine Kinase Troponin I B-Natriuretic Peptide Total Protein Albumin TSH 08/20/19 08:38 WBC RBC Hgb Hct MCV MCH MCHC RDW Plt Count MPV Absolute Neuts (auto) Neutrophils % Lymphocytes % Monocytes % Eosinophils % Basophils % Nucleated RBC % PT with INR INR PTT (Actin FS) Anticoagulation Therapy Puncture Site ABG pH ABG pCO2 at Pt Temp ABG pO2 at Pt Temp ABG HCO3 ABG O2 Sat (Measured) ABG O2 Content ABG Base Excess Dereje Test Carboxyhemoglobin Methemoglobin O2 Delivery Device Oxygen Flow Rate Vent Mode Vent Rate Mechanical Rate Pressure Support Vent Sodium 141 Potassium 3.7 Chloride 106 Carbon Dioxide 27 Anion Gap 7 L BUN 19.1 H Creatinine 1.3 Est GFR (CKD-EPI)AfAm 59.31 Est GFR (CKD-EPI)NonAf 51.17 POC Glucometer Random Glucose 123 H Calcium 9.6 Total Bilirubin 0.9 AST 14 L ALT 22 Alkaline Phosphatase 85 Creatine Kinase 30 Troponin I 0.07 H B-Natriuretic Peptide Total Protein 7.2 Albumin 4.0 TSH Atrial fibrillation Imaging - Results Chest X-ray: Report Reviewed (Congestive changes) Ultrasound: Report Reviewed (No DVT) EKG: Report Reviewed Problem List - Problems (1) CAD (coronary artery disease) Code(s): I25.10 - ATHSCL HEART DISEASE OF [place] CORONARY ARTERY W/O ANG PCTRS Qualifiers: Coronary Disease-Associated Artery/Lesion type: [place] artery [place] vs. transplanted heart: [place] heart Associated angina: without angina Qualified Code(s): I25.10 - Atherosclerotic heart disease of [place] coronary artery without angina pectoris (2) History of percutaneous coronary intervention Code(s): Z98.61 - CORONARY ANGIOPLASTY STATUS (3) HTN (hypertension) Code(s): I10 - ESSENTIAL (PRIMARY) HYPERTENSION Qualifiers: Hypertension type: essential hypertension Qualified Code(s): I10 - Essential (primary) hypertension (4) Hypercholesterolemia Code(s): E78.00 - PURE HYPERCHOLESTEROLEMIA, UNSPECIFIED (5) Hypothyroidism Code(s): E03.9 - HYPOTHYROIDISM, UNSPECIFIED Qualifiers: Hypothyroidism type: unspecified Qualified Code(s): E03.9 - Hypothyroidism , unspecified (6) Diabetes mellitus Code(s): E11.9 - TYPE 2 DIABETES MELLITUS WITHOUT COMPLICATIONS Qualifiers: Diabetes mellitus type: type 2 Diabetes mellitus residential insulin use: without exterminator helper use Diabetes mellitus complication status: without complication Qualified Code(s): E11.9 - Type 2 diabetes mellitus without complications (7) Acute on chronic diastolic heart failure Code(s): I50.33 - ACUTE ON CHRONIC DIASTOLIC (CONGESTIVE) HEART FAILURE (8) Atrial fibrillation Code(s): I48.91 - UNSPECIFIED ATRIAL FIBRILLATION Qualifiers: Atrial fibrillation type: other persistent Qualified Code(s): I48.19 - Other persistent atrial fibrillation (9) CHF (congestive heart failure) Code(s): I50.9 - HEART FAILURE, UNSPECIFIED Qualifiers: Heart failure type: unspecified Heart failure chronicity: acute on chronic Qualified Code(s): I50.9 - Heart failure, unspecified (10) Aneurysm of superficial temporal artery Code(s): I72.8 - ANEURYSM OF OTHER SPECIFIED ARTERIES (11) Type 2 diabetes mellitus with diabetic polyneuropathy Code(s): E11.42 - TYPE 2 DIABETES MELLITUS WITH DIABETIC POLYNEUROPATHY Assessment/Plan 1. LV diastolic dysfunction with acute on chronic failure class 1 NYHA classification, clinically improved 2. CAD s/p [place], PCI/stent (multivessel), angina pectoris 3. AF [id number] score of 6 on Eliquis 4. HTN 5. Hypercholesterolemia 6. DM 7. Hypothyroidism 8. Demand ischemia PLAN: 1. Continue Eliquis 2. Continue Metoprolol ER, Amlodipine and Losartan 3. Continue Diuretics, IV Lasix with monitoring daily weight, I/Os, renal function and electrolytes 4. Continue Atorvastatin, Fenofibrate and Vascepa as tolerated 5. Continue Ranexa 6. DM management 7. Review office records and further evaluation can be done as outpatient. 8. Trend troponins Armand Peña MD
--- NOTE | 2019-08-20 19:27 | HP ---
Admitting History and Physical - Primary Care Physician PCP: Neymar Medrano - Admission Chief Complaint: TRIPP History of Present Illness: Pt with known CAD, CHF noticed to develop progressive TRIPP since Tuesday nights. yesterday he decided to come to ER. Pt was found to be in acute CHF. 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) Cardiovascular: Yes: AFIB, CAD, CHF, HTN, Hyperlipdemia, [place], Mitral Insufficiency, Mitral Stenosis, Pulmonary Hypertension, Other (s/p CI: BMS to LAD, [place] ot LCX) Pulmonary: Yes: Other (Pulmonary HTN) Endocrine: Yes: Diabetes Mellitus, Hypothyroidism Dermatology: Yes: Basal Cell - Past Surgical History Past Surgical History: Yes: Cholecystectomy, Stent - Smoking History Smoking history: Never smoked Have you smoked in the past 12 months: No - Alcohol/Substance Use Hx Alcohol Use: Yes (occasion) Home Medications - Allergies Allergies/Adverse Reactions: Allergies Allergy/AdvReac Type Severity Reaction Status Date / Time No Known Allergies Allergy Verified 06/28/19 10:44 - Home Medications Home Medications: Ambulatory Orders Amlodipine Besylate 10 mg PO HS 06/06/19 Apixaban [Eliquis -] 2.5 mg PO BID 06/06/19 Atorvastatin Ca [Lipitor] 80 mg PO DAILY 06/06/19 Cholecalciferol (Vitamin D3) [Vitamin D -] 1,000 mg PO DAILY 06/06/19 Dapagliflozin Propanediol [Farxiga] 5 mg PO DAILY 06/06/19 Fenofibrate,Micronized [Fenofibrate] 1 tab PO HS 06/06/19 Glimepiride [Amaryl -] 4 mg PO BID 06/06/19 Insulin (Novolog) [Novolog -] 8 units SQ BID 06/06/19 Insulin (Novolog) [Novolog -] 10 units SQ DAILY 06/06/19 Insulin Detemir [Levemir Flextouch] 22 units SQ HS 06/06/19 Losartan-Hctz 100-25 mg Tab 1 tab PO DAILY 06/06/19 Metoprolol Succinate 1 tab PO HS 06/06/19 Ramipril 10 mg PO DAILY 06/06/19 Ranolazine [Ranexa -] 500 mg PO BID 06/06/19 Levothyroxine [Synthroid -] 1 tab PO DAILY 08/17/19 Review of Systems - Review of Systems Constitutional: denies: Chills, Fever Eyes: denies: Blurred Vision, Double Vision HENT: denies: Ear Discharge, Ear Pain, Epistaxis, Nasal Congestion, Throat Pain Neck: denies: Pain on Movement, Stiffness Cardiovascular: denies: Chest Pain, Edema, Palpitations Respiratory: reports: SOB on Exertion. denies: Cough, Hemoptysis, Wheezing Gastrointestinal: denies: Abdominal Pain, Diarrhea, Nausea Genitourinary: denies: Burning, Discharge, Dysuria Musculoskeletal: denies: Back Pain, Extremity Pain, Joint Swelling Integumentary: denies: Blister, Bruising, Rash Neurological: denies: Change in LOC, Change in Speech, Confusion, Numbness, Weakness Endocrine: denies: Excessive Sweating, Intolerance to Cold Hematology/Lymphatic: denies: Easily Bruised, Excessive Bleeding Psychiatric: denies: Anxiety, Depression Physical Examination Vital Signs: Vital Signs Temperature 98.6 F 08/20/19 18:31 Pulse Rate 78 08/20/19 18:31 Respiratory Rate 20 08/20/19 18:31 Blood Pressure 144/59 L 08/20/19 18:31 O2 Sat by Pulse Oximetry (%) 96 08/20/19 18:31 Constitutional: Yes: No Distress, Calm Eyes: Yes: Conjunctiva Clear, EOM Intact, PERRL HENT: No: Epistaxis, Pharyngeal Erythema, Rhinnorhea Neck: Yes: Trachea Midline. No: Lymphadenopathy Cardiovascular: Yes: Regular Rate and Rhythm, Murmur, S1, S2 Respiratory: Yes: Regular, Other (crackle at right > left base) Gastrointestinal: Yes: Normal Bowel Sounds, Soft. No: Tenderness ...Rectal Exam: Yes: Deferred Renal/: No: CVA Tenderness - Left, CVA Tenderness - Right Musculoskeletal: No: Joint Stiffness, Joint Swelling Extremities: No: Cold, Cool, Cyanosis Edema: No Integumentary: Yes: Bruising. No: Rash Neurological: Yes: Alert, Oriented, Other (motor and sensory examination is symmetric in UE/ LE/ face) Psychiatric: Yes: Alert, Oriented Labs: CBC, BMP 08/20/19 08:38 08/20/19 08:38 Imaging - Results Chest X-ray: Report Reviewed Ultrasound: Report Reviewed Problem List - Problems (1) Acute on chronic diastolic heart failure Code(s): I50.33 - ACUTE ON CHRONIC DIASTOLIC (CONGESTIVE) HEART FAILURE (2) Elevated troponin I level Code(s): R79.89 - OTHER SPECIFIED ABNORMAL FINDINGS OF BLOOD CHEMISTRY (3) CAD (coronary artery disease) Code(s): I25.10 - ATHSCL HEART DISEASE OF [place] CORONARY ARTERY W/O ANG PCTRS Qualifiers: Coronary Disease-Associated Artery/Lesion type: [place] artery [place] vs. 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 insulin use: without truck terminal manager use Diabetes mellitus complication status: without complication Qualified Code(s): E11.9 - Type 2 diabetes mellitus without complications (5) HTN (hypertension) Code(s): I10 - ESSENTIAL (PRIMARY) HYPERTENSION Qualifiers: Hypertension type: essential hypertension Qualified Code(s): I10 - Essential (primary) hypertension (6) Hypercholesterolemia Code(s): E78.00 - PURE HYPERCHOLESTEROLEMIA, UNSPECIFIED (7) Hypothyroidism Code(s): E03.9 - HYPOTHYROIDISM, UNSPECIFIED Qualifiers: Hypothyroidism type: unspecified Qualified Code(s): E03.9 - Hypothyroidism , unspecified (8) Atrial fibrillation Code(s): I48.91 - UNSPECIFIED ATRIAL FIBRILLATION Qualifiers: Atrial fibrillation type: other persistent Qualified Code(s): I48.19 - Other persistent atrial fibrillation Assessment/Plan Admit to monitor bed. Serial CE Lasix IV Cardio consult Continue AC Monitor BGM Monitor electrolytes, renal function. AM labs
[2019-08-20 21:02] VITALS: BMI 29.8
[2019-08-20] MEDS ORDERED: INSULIN (LEVEMIR) 100 UNITS/ML UNITS SQ SCH (22:00)
[2019-08-20] MEDS: INSULIN (LEVEMIR) 100 UNITS/ML UNITS SQ SCH (22:21)
[2019-08-20] MEDS: FENOFIBRIC ACID 135 MG CAP PO SCH (22:22)
[2019-08-20] MEDS: amLODIPine BESYLATE 10 MG TABLET (FP) PO SCH (22:22)
[2019-08-20] MEDS: ATORVASTATIN CA 80 MG TABLET (FP) PO SCH (22:22)
[2019-08-21] MEDS: INSULIN SLIDING SCALE (NOVOLOG) 1 VIAL SQ SCH ×4 (06:25→22:13)
[2019-08-21] MEDS: LEVOTHYROXINE NA 25 MCG TABLET (FP) PO SCH (06:32)
--- NOTE | 2019-08-21 07:09 | PN ---
Progress Note (short form) - Note Progress Note: Chief Complaint: Events noted, notes reviewed, dyspnea improved but has not resolved, denies any chest discomfort History of Present Illness: Seen and examined on telemetry. dyspnea improved but has not resolved, denies any chest discomfort - Current Medication List Current Medications Amlodipine Besylate (Norvasc -) 10 mg PO [facility] Last Admin: 08/20/19 22:22 Dose: 10 mg Apixaban (Eliquis -) 2.5 mg PO BID [facility] Last Admin: 08/20/19 22:22 Dose: 2.5 mg Atorvastatin Calcium (Lipitor -) 80 mg PO [facility] Last Admin: 08/20/19 22:22 Dose: 80 mg Cholecalciferol (Vitamin D3 -) 1,000 unit PO DAILY [facility] Last Admin: 08/20/19 11:00 Dose: 1,000 unit Fenofibric Acid (Trilipix -) 135 mg PO [facility] Last Admin: 08/20/19 22:22 Dose: 135 mg Influenza Virus Vaccine Quadrival (Flulaval Quad ) 60 mcg IM .ONCE ONE Stop: 08/21/19 08:01 Insulin Aspart (Novolog Vial Sliding Scale -) 1 vial SQ [facility]; Protocol Last Admin: 08/21/19 06:25 Dose: Not Given Insulin Detemir (Levemir Vial) 15 units SQ [facility] Last Admin: 08/20/19 22:21 Dose: Not Given Levothyroxine Sodium (Synthroid -) 25 mcg PO DAILY@0700 [facility] Last Admin: 08/21/19 06:32 Dose: 25 mcg Losartan Potassium (Cozaar -) 100 mg PO DAILY [facility] Last Admin: 08/20/19 11:00 Dose: 100 mg Metoprolol Succinate (Toprol Xl -) 100 mg PO [facility] Last Admin: 08/20/19 22:22 Dose: 100 mg Non-Formulary Medication (Dapagliflozin Propanediol [Farxiga]) 5 mg PO DAILY [facility] Ranolazine (Ranexa -) 500 mg PO BID [facility] Last Admin: 08/20/19 22:23 Dose: 500 mg Review of Systems - Review of Systems Constitutional: Generalized Weakness Respiratory: denies Cough or Sputum Production Cardiovascular: as noted above Gastrointestinal: denies Nausea, Vomiting, Diarrhea, Constipation or Abdominal Pain Genitourinary: no symptoms reported Musculoskeletal: no symptoms reported Endocrine: no symptoms reported - Objective Vital Signs: Last Vital Signs Temp Pulse Resp BP Pulse Ox 97.5 F L 59 L 20 157/69 96 08/21/19 05:58 08/21/19 05:58 08/21/19 05:58 08/21/19 05:58 08/20/19 19:00 Intake & Output 08/18/19 08/19/19 08/20/19 08/21/19 23:59 23:59 23:59 23:59 Weight 215 lb 220 lb 219 lb Neck: Supple Negative JVD No Bruit Cardiovascular: S1 S2 irregularly irregular Respiratory: Diminished Breath Sounds at the Bases Bilaterally Gastrointestinal: Soft Benign Normal Bowel Sounds Extremities: No Edema Labs: CBC, BMP 08/21/19 05:25 08/21/19 06:00 Troponin, BNP 08/20/19 08/21/19 19:00 06:00 Troponin I 0.06 H 0.08 H Hepatic Panel Total Bilirubin 0.9 mg/dL (0.2-1) 08/20/19 08:38 AST 14 U/L (15-37) L 08/20/19 08:38 ALT 22 U/L (13-61) 08/20/19 08:38 Alkaline Phosphatase 85 U/L (45-117) 08/20/19 08:38 Albumin 4.0 g/dl (3.4-5.0) 08/20/19 08:38 INR, PTT INR 1.63 (0.83-1.09) H 08/19/19 23:20 Assessment/Plan ASSESSMENT: 1. Clinical presentation is consistent with class I-II [place] [employer] classification left ventricular failure related to diastolic LV dysfunction precipitated by dietary noncompliance, clinically improved 2. CAD post CO/PCI/stent (multi-vessel) with evidence of demand ischemia angina pectoris 3. Persistent atrial fibrillation [id number] score of 6 on DOAc's/Eliquis 4. HTN 5. Diabetes mellitus 6. Hypercholesterolemia 7. Hypothyroidism PLAN: 1. Continue Eliquis, but dose should be 5 mg twice daily since patient's creatinine valve has improved/patient's office visit dated June 18, 2019 creatinine was 1.5 2. Continue Toprol-XL 3. Continue Amlodipine 4. Continue Losartan 5. Continue her Ranexa 6. Continue IV Lasix with close monitoring of renal function and electrolytes 7. Continue Atorvastatin, Fenofibrate and Vascepa therapies 8. Additional cardiovascular evaluation to be performed on outpatient basis Britta Renner MD
[2019-08-21 07:23] LABS: HEMOGLOBIN 12.7 GM/dL (11.7-16.9); MCH 32.9 pg (25.7-33.7); MCHC 34.3 g/dl (32.0-35.9); MEAN CELL VOLUME 95.7 fl (80-96); MEAN PLT VOLUME 9.3 fl (7.5-11.1); PLATELET COUNT 306 K/MM3 (134-434); RBC 3.87 M/mm3 (4.00-5.60); RDW 15.1 % (11.9-15.9)
[2019-08-21 07:34] LABS: BLOOD UREA NITROGEN 17.3 mg/dL (7-18); CALCIUM 9.4 mg/dL (8.5-10.1); CREATININE 1.1 mg/dL (0.55-1.3); POTASSIUM 3.7 mmol/L (3.5-5.1)
[2019-08-21] MEDS: CHOLECALCIFEROL (VIT D3) 1,000 UNIT (25 MCG) TABLET PO SCH (09:55)
[2019-08-21] MEDS: RANOLAZINE E.R. 500 MG TABLET (FP) PO SCH ×2 (09:55→22:12)
[2019-08-21] MEDS: LOSARTAN POTASSIUM 50 MG TABLET (FP) PO SCH (09:55)
[2019-08-21] MEDS: APIXABAN 2.5 MG TABLET PO SCH (09:55)
[2019-08-21] MEDS ORDERED: FLU VACCINE QUAD 60 MCG/0.5 ML (MDV 19-20) IM ONE (10:00)
--- NOTE | 2019-08-21 18:15 | PN ---
Progress Note, Physician History of Present Illness: Pt w/o SOB, CP, palpitations, dizziness, abd pain. - Current Medication List Current Medications: Active Medications Amlodipine Besylate (Norvasc -) 10 mg PO [facility] Last Admin: 08/20/19 22:22 Dose: 10 mg Apixaban (Eliquis -) 2.5 mg PO BID [facility] Last Admin: 08/21/19 09:55 Dose: 2.5 mg Atorvastatin Calcium (Lipitor -) 80 mg PO [facility] Last Admin: 08/20/19 22:22 Dose: 80 mg Cholecalciferol (Vitamin D3 -) 1,000 unit PO DAILY [facility] Last Admin: 08/21/19 09:55 Dose: 1,000 unit Fenofibric Acid (Trilipix -) 135 mg PO [facility] Last Admin: 08/20/19 22:22 Dose: 135 mg Insulin Aspart (Novolog Vial Sliding Scale -) 1 vial SQ [facility]; Protocol Last Admin: 08/21/19 16:42 Dose: Not Given Insulin Detemir (Levemir Vial) 15 units SQ [facility] Last Admin: 08/20/19 22:21 Dose: Not Given Levothyroxine Sodium (Synthroid -) 25 mcg PO DAILY@0700 [facility] Last Admin: 08/21/19 06:32 Dose: 25 mcg Losartan Potassium (Cozaar -) 100 mg PO DAILY [facility] Last Admin: 08/21/19 09:55 Dose: 100 mg Metoprolol Succinate (Toprol Xl -) 100 mg PO [facility] Last Admin: 08/20/19 22:22 Dose: 100 mg Non-Formulary Medication (Dapagliflozin Propanediol [Farxiga]) 5 mg PO DAILY [facility] Ranolazine (Ranexa -) 500 mg PO BID [facility] Last Admin: 08/21/19 09:55 Dose: 500 mg - Objective Vital Signs: Vital Signs Temperature 98 F 08/21/19 13:58 Pulse Rate 60 08/21/19 13:58 Respiratory Rate 20 08/21/19 13:58 Blood Pressure 137/66 08/21/19 13:58 O2 Sat by Pulse Oximetry (%) 98 08/21/19 09:00 Constitutional: Yes: No Distress, Calm Cardiovascular: Yes: Regular Rate and Rhythm, S1, S2 Respiratory: Yes: Regular, Rales (crackles at both base, R > L) Gastrointestinal: Yes: Normal Bowel Sounds, Soft, Tenderness Edema: No Neurological: Yes: Alert, Oriented Labs: CBC, BMP 08/21/19 05:25 08/21/19 06:00 INR, PTT INR 1.63 (0.83-1.09) H 08/19/19 23:20 Problem List - Problems (1) Acute on chronic diastolic heart failure Code(s): I50.33 - ACUTE ON CHRONIC DIASTOLIC (CONGESTIVE) HEART FAILURE (2) Elevated troponin I level Code(s): R79.89 - OTHER SPECIFIED ABNORMAL FINDINGS OF BLOOD CHEMISTRY (3) CAD (coronary artery disease) Code(s): I25.10 - ATHSCL HEART DISEASE OF [place] CORONARY ARTERY W/O ANG PCTRS Qualifiers: Coronary Disease-Associated Artery/Lesion type: [place] artery [place] vs. transplanted heart: [place] heart Associated angina: without angina Qualified Code(s): I25.10 - Atherosclerotic heart disease of [place] coronary artery without angina pectoris (4) Diabetes mellitus Code(s): E11.9 - TYPE 2 DIABETES MELLITUS WITHOUT COMPLICATIONS Qualifiers: Diabetes mellitus type: type 2 Diabetes mellitus usp insulin use: without termite inspector use Diabetes mellitus complication status: without complication Qualified Code(s): E11.9 - Type 2 diabetes mellitus without complications (5) HTN (hypertension) Code(s): I10 - ESSENTIAL (PRIMARY) HYPERTENSION Qualifiers: Hypertension type: essential hypertension Qualified Code(s): I10 - Essential (primary) hypertension (6) Hypercholesterolemia Code(s): E78.00 - PURE HYPERCHOLESTEROLEMIA, UNSPECIFIED (7) Hypothyroidism Code(s): E03.9 - HYPOTHYROIDISM, UNSPECIFIED Qualifiers: Hypothyroidism type: unspecified Qualified Code(s): E03.9 - Hypothyroidism , unspecified (8) Atrial fibrillation Code(s): I48.91 - UNSPECIFIED ATRIAL FIBRILLATION Qualifiers: Atrial fibrillation type: other persistent Qualified Code(s): I48.19 - Other persistent atrial fibrillation Assessment/Plan Admit to monitor bed. Serial CE Lasix IV Cardio consult is appreciated Continue AC Monitor BGM Monitor electrolytes, renal function. Pt's is at bedside AM labs
[2019-08-21] MEDS ORDERED: FUROSEMIDE 40 MG/4 ML INJECTABLE VIAL IVPUSH ONE (18:16)
[2019-08-21] MEDS: ATORVASTATIN CA 80 MG TABLET (FP) PO SCH (22:12)
[2019-08-21] MEDS: FENOFIBRIC ACID 135 MG CAP PO SCH (22:12)
[2019-08-21] MEDS: APIXABAN 5 MG TABLET PO SCH (22:12)
[2019-08-21] MEDS: amLODIPine BESYLATE 10 MG TABLET (FP) PO SCH (22:12)
[2019-08-21] MEDS: INSULIN (LEVEMIR) 100 UNITS/ML UNITS SQ SCH (22:13)
[2019-08-22] MEDS: LEVOTHYROXINE NA 25 MCG TABLET (FP) PO SCH (06:48)
[2019-08-22] MEDS: INSULIN SLIDING SCALE (NOVOLOG) 1 VIAL SQ SCH ×2 (06:54→11:47)
[2019-08-22 07:36] LABS: BLOOD UREA NITROGEN 15.2 mg/dL (7-18); CALCIUM 9.5 mg/dL (8.5-10.1); CREATININE 1.1 mg/dL (0.55-1.3); POTASSIUM 3.4 mmol/L (3.5-5.1)
--- NOTE | 2019-08-22 09:36 | PN ---
Progress Note, Physician History of Present Illness: Pt w/o SOB, CP, palpitations, dizziness, abd pain. - Current Medication List Current Medications: Active Medications Amlodipine Besylate (Norvasc -) 10 mg PO [facility] Last Admin: 08/21/19 22:12 Dose: 10 mg Apixaban (Eliquis -) 5 mg PO BID [facility] Last Admin: 08/21/19 22:12 Dose: 5 mg Atorvastatin Calcium (Lipitor -) 80 mg PO [facility] Last Admin: 08/21/19 22:12 Dose: 80 mg Cholecalciferol (Vitamin D3 -) 1,000 unit PO DAILY [facility] Last Admin: 08/21/19 09:55 Dose: 1,000 unit Fenofibric Acid (Trilipix -) 135 mg PO [facility] Last Admin: 08/21/19 22:12 Dose: 135 mg Insulin Aspart (Novolog Vial Sliding Scale -) 1 vial SQ [facility]; Protocol Last Admin: 08/22/19 06:54 Dose: Not Given Insulin Detemir (Levemir Vial) 15 units SQ [facility] Last Admin: 08/21/19 22:13 Dose: 15 units Levothyroxine Sodium (Synthroid -) 25 mcg PO DAILY@0700 [facility] Last Admin: 08/22/19 06:48 Dose: 25 mcg Losartan Potassium (Cozaar -) 100 mg PO DAILY [facility] Last Admin: 08/21/19 09:55 Dose: 100 mg Metoprolol Succinate (Toprol Xl -) 100 mg PO [facility] Last Admin: 08/21/19 22:12 Dose: 100 mg Non-Formulary Medication (Dapagliflozin Propanediol [Farxiga]) 5 mg PO DAILY [facility] Ranolazine (Ranexa -) 500 mg PO BID [facility] Last Admin: 08/21/19 22:12 Dose: 500 mg - Objective Vital Signs: Vital Signs Temperature 98.2 F 08/22/19 06:00 Pulse Rate 80 08/22/19 06:00 Respiratory Rate 20 08/22/19 06:00 Blood Pressure 172/90 H 08/22/19 06:00 O2 Sat by Pulse Oximetry (%) 98 08/21/19 21:00 Constitutional: Yes: No Distress, Calm Cardiovascular: Yes: Regular Rate and Rhythm, S1, S2 Respiratory: Yes: Regular, CTA Bilaterally Gastrointestinal: Yes: Normal Bowel Sounds, Soft Edema: No Neurological: Yes: Alert, Oriented Labs: CBC, BMP 08/21/19 05:25 08/22/19 05:20 INR, PTT INR 1.63 (0.83-1.09) H 08/19/19 23:20 Problem List - Problems (1) Acute on chronic diastolic heart failure Code(s): I50.33 - ACUTE ON CHRONIC DIASTOLIC (CONGESTIVE) HEART FAILURE (2) Elevated troponin I level Code(s): R79.89 - OTHER SPECIFIED ABNORMAL FINDINGS OF BLOOD CHEMISTRY (3) CAD (coronary artery disease) Code(s): I25.10 - ATHSCL HEART DISEASE OF [place] CORONARY ARTERY W/O ANG PCTRS Qualifiers: Coronary Disease-Associated Artery/Lesion type: [place] artery [place] vs. transplanted heart: [place] heart Associated angina: without angina Qualified Code(s): I25.10 - Atherosclerotic heart disease of [place] coronary artery without angina pectoris (4) Diabetes mellitus Code(s): E11.9 - TYPE 2 DIABETES MELLITUS WITHOUT COMPLICATIONS Qualifiers: Diabetes mellitus type: type 2 Diabetes mellitus emt intermediate insulin use: without emt intermediate use Diabetes mellitus complication status: without complication Qualified Code(s): E11.9 - Type 2 diabetes mellitus without complications (5) HTN (hypertension) Code(s): I10 - ESSENTIAL (PRIMARY) HYPERTENSION Qualifiers: Hypertension type: essential hypertension Qualified Code(s): I10 - Essential (primary) hypertension (6) Hypercholesterolemia Code(s): E78.00 - PURE HYPERCHOLESTEROLEMIA, UNSPECIFIED (7) Hypothyroidism Code(s): E03.9 - HYPOTHYROIDISM, UNSPECIFIED Qualifiers: Hypothyroidism type: unspecified Qualified Code(s): E03.9 - Hypothyroidism , unspecified (8) Atrial fibrillation Code(s): I48.91 - UNSPECIFIED ATRIAL FIBRILLATION Qualifiers: Atrial fibrillation type: other persistent Qualified Code(s): I48.19 - Other persistent atrial fibrillation Assessment/Plan Admitted to monitor bed. Serial CE s/p Lasix IV Hypokalemia secondary to lasix; to replete Cardio consult is appreciated Continue AC Monitor BGM Monitor electrolytes, renal function. To f/u with Cardio
[2019-08-22] MEDS ORDERED: POTASSIUM CHLORIDE TABS 20 MEQ TABLET.ER (FP) PO ONE (09:45)
[2019-08-22] MEDS: LOSARTAN POTASSIUM 50 MG TABLET (FP) PO SCH (10:11)
[2019-08-22] MEDS: CHOLECALCIFEROL (VIT D3) 1,000 UNIT (25 MCG) TABLET PO SCH (10:11)
[2019-08-22] MEDS: RANOLAZINE E.R. 500 MG TABLET (FP) PO SCH (10:11)
[2019-08-22] MEDS: APIXABAN 5 MG TABLET PO SCH (10:11)
--- NOTE | 2019-08-22 10:26 | PN ---
Progress Note, Physician History of Present Illness: TRIPP and cough resolved, feels back to baseline. - Current Medication List Current Medications: Active Medications Amlodipine Besylate (Norvasc -) 10 mg PO [facility] Last Admin: 08/21/19 22:12 Dose: 10 mg Apixaban (Eliquis -) 5 mg PO BID [facility] Last Admin: 08/22/19 10:11 Dose: 5 mg Atorvastatin Calcium (Lipitor -) 80 mg PO [facility] Last Admin: 08/21/19 22:12 Dose: 80 mg Cholecalciferol (Vitamin D3 -) 1,000 unit PO DAILY [facility] Last Admin: 08/22/19 10:11 Dose: 1,000 unit Fenofibric Acid (Trilipix -) 135 mg PO [facility] Last Admin: 08/21/19 22:12 Dose: 135 mg Insulin Aspart (Novolog Vial Sliding Scale -) 1 vial SQ [facility]; Protocol Last Admin: 08/22/19 06:54 Dose: Not Given Insulin Detemir (Levemir Vial) 15 units SQ [facility] Last Admin: 08/21/19 22:13 Dose: 15 units Levothyroxine Sodium (Synthroid -) 25 mcg PO DAILY@0700 [facility] Last Admin: 08/22/19 06:48 Dose: 25 mcg Losartan Potassium (Cozaar -) 100 mg PO DAILY [facility] Last Admin: 08/22/19 10:11 Dose: 100 mg Metoprolol Succinate (Toprol Xl -) 100 mg PO [facility] Last Admin: 08/21/19 22:12 Dose: 100 mg Non-Formulary Medication (Dapagliflozin Propanediol [Farxiga]) 5 mg PO DAILY [facility] Ranolazine (Ranexa -) 500 mg PO BID [facility] Last Admin: 08/22/19 10:11 Dose: 500 mg - Objective Vital Signs: Vital Signs Temperature 98.2 F 08/22/19 06:00 Pulse Rate 80 08/22/19 06:00 Respiratory Rate 20 08/22/19 06:00 Blood Pressure 172/90 H 08/22/19 06:00 O2 Sat by Pulse Oximetry (%) 98 08/21/19 21:00 Constitutional: Yes: No Distress, Calm Neck: Yes: Supple Cardiovascular: Yes: Pulse Irregular Respiratory: Yes: Regular, CTA Bilaterally Gastrointestinal: Yes: Normal Bowel Sounds, Soft Edema: No Labs: CBC, BMP 08/21/19 05:25 08/22/19 05:20 INR, PTT INR 1.63 (0.83-1.09) H 08/19/19 23:20 - ....Imaging EKG: Report Reviewed (Tele: Rate-controlled afib) Problem List - Problems (1) Demand ischemia Code(s): I24.8 - OTHER FORMS OF ACUTE ISCHEMIC HEART DISEASE (2) Acute on chronic diastolic heart failure Code(s): I50.33 - ACUTE ON CHRONIC DIASTOLIC (CONGESTIVE) HEART FAILURE (3) Atrial fibrillation Code(s): I48.91 - UNSPECIFIED ATRIAL FIBRILLATION Qualifiers: Atrial fibrillation type: other persistent Qualified Code(s): I48.19 - Other persistent atrial fibrillation (4) CAD (coronary artery disease) Code(s): I25.10 - ATHSCL HEART DISEASE OF [place] CORONARY ARTERY W/O ANG PCTRS Qualifiers: Coronary Disease-Associated Artery/Lesion type: [place] artery [place] vs. transplanted heart: [place] heart Associated angina: without angina Qualified Code(s): I25.10 - Atherosclerotic heart disease of [place] coronary artery without angina pectoris (5) Diabetes mellitus Code(s): E11.9 - TYPE 2 DIABETES MELLITUS WITHOUT COMPLICATIONS Qualifiers: Diabetes mellitus type: type 2 Diabetes mellitus oil heaterman insulin use: without oil heaterman use Diabetes mellitus complication status: without complication Qualified Code(s): E11.9 - Type 2 diabetes mellitus without complications (6) HTN (hypertension) Code(s): I10 - ESSENTIAL (PRIMARY) HYPERTENSION Qualifiers: Hypertension type: essential hypertension Qualified Code(s): I10 - Essential (primary) hypertension (7) History of percutaneous coronary intervention Code(s): Z98.61 - CORONARY ANGIOPLASTY STATUS (8) Hypercholesterolemia Code(s): E78.00 - PURE HYPERCHOLESTEROLEMIA, UNSPECIFIED (9) Hypothyroidism Code(s): E03.9 - HYPOTHYROIDISM, UNSPECIFIED Qualifiers: Hypothyroidism type: unspecified Qualified Code(s): E03.9 - Hypothyroidism , unspecified Assessment/Plan 1. Acute on chronic diastolic heart failure precipitated by dietary noncompliance, clinically improved 2. CAD post MN/PCI/stent (multi-vessel) with evidence of demand ischemia angina pectoris 3. Persistent atrial fibrillation [id number] score of 6 on DOAc's/Eliquis 4. HTN 5. Diabetes mellitus 6. Hypercholesterolemia 7. Hypothyroidism PLAN: 1. Continue Eliquis 5 bid 2. Continue Toprol-XL 100 qd 3. Continue Amlodipine 10 qd 4. Continue Losartan 100 qd 5. Continue Ranexa 500 bid 6. Start Aldactone 25 qd with monitor diuretic response, renal function and electrolytes 7. Continue Atorvastatin 80 qhs, Fenofibrate 135 qd and Vascepa 2 bid 8. March d/c home with f/u with Dr. Renner in office
[2019-08-22 11:01] VITALS: BP 145/74; PULSE 67; TEMP 97.6
[2019-08-22] MEDS ORDERED: SPIRONOLACTONE 25 MG TABLET (FP) PO SCH (11:30)
--- NOTE | 2019-08-22 14:55 | DS ---
Physical Examination Vital Signs: Vital Signs Temperature 97.6 F 08/22/19 10:00 Pulse Rate 67 08/22/19 10:00 Respiratory Rate 20 08/22/19 10:00 Blood Pressure 145/74 08/22/19 10:00 O2 Sat by Pulse Oximetry (%) 98 08/22/19 09:00 Findings/Remarks: See today PRogress Note for HPI, ROS, PE Respiratory: Yes: Poor Air Entry Labs: CBC, BMP 08/21/19 05:25 08/22/19 05:20 Discharge Summary Problems reviewed: Yes Reason For Visit: ACUTE ON CHRONIC CONGESTIVE HEART FAILURE Current Active Problems Acute on chronic diastolic heart failure (Acute) Atrial fibrillation (Acute) CAD (coronary artery disease) (Acute) CHF (congestive heart failure) (Acute) Demand ischemia (Acute) Diabetes mellitus (Acute) Elevated troponin I level (Acute) HTN (hypertension) (Acute) History of percutaneous coronary intervention (Acute) Hypercholesterolemia (Acute) Hypothyroidism (Acute) Hospital Course: Pt with known CAD came to ER for TRIPP, found to be in Acute CHF, started on IV Lasix with good improvement in his breathing. Condition: Improved - Instructions Diet, Activity, Other Instructions: Resume diet. Medications were adjusted. Please medication list. Referrals: Neymar Medrano MD [Primary Care Provider] - (in 1-2 weeks) Britta Renner MD [Staff Physician] - (1-2 weeks) Disposition: HOME - Home Medications Comprehensive Discharge Medication List: Ambulatory Orders see Patient discharge medications
== END 2019-08-22 15:15 | disposition home or self-care (01) | DRG 292 ==
LOC: JER 22:04 → JERBED 08-20 00:13 → J4W 08-20 18:47
PROVIDERS: ADMIT Specialist; ATTEND Specialist
DX: I11.0 Hypertensive heart disease with heart failure (principal); I48.19 Other persistent atrial fibrillation; I24.8 Other forms of acute ischemic heart disease; I50.33 Acute on chronic diastolic (congestive) heart failure; I25.10 Atherosclerotic heart disease of native coronary artery without angina pectoris; Z95.1 Presence of aortocoronary bypass graft; E03.9 Hypothyroidism, unspecified; Z79.4 Long term (current) use of insulin; I25.2 Old myocardial infarction; Z91.11 Patient's noncompliance with dietary regimen; E78.5 Hyperlipidemia, unspecified; E78.00 Pure hypercholesterolemia, unspecified; Z95.5 Presence of coronary angioplasty implant and graft; I36.0 Nonrheumatic tricuspid (valve) stenosis; I34.0 Nonrheumatic mitral (valve) insufficiency; I27.20 Pulmonary hypertension, unspecified; I72.8 Aneurysm of other specified arteries; E11.42 Type 2 diabetes mellitus with diabetic polyneuropathy
CPT/HCPCS: 36415; 36600; 71045-TC-FY; 80048; 80053; 82375; 82550; 82803; 82962; 83050; 83880; 84443; 84484; 85025; 85027; 85610; 85730; 93005; 93010; 93970-TC; 99285-25; G0008; G0463-25; Q2036

== ENCOUNTER 2020-01-23 07:49 | Day surgery (SDC) | payer OTHER ==
[2020-01-22 08:44] VITALS: BMI 28.7
[~2020-01-23 07:49] MED LIST changes: +KETOROLAC TROMETHAMINE 0.5% EYE DROP 1 DROP DROPS OP SCH; -LIDOCAINE HCL 1%, 10 MG/ML (20ML VIAL) PNB ONE; +PHENYLEPHRINE 2.5% OPHTH SOLN 15 ML BOTTLE OP SCH; +TETRACAINE 0.5% OPHTH SOLN 2 ML BOTTLE TP ONE
[2020-01-23] MEDS ORDERED: ACETAMINOPHEN 325 MG TABLET (FP) PO PRN (08:12)
[2020-01-23] MEDS ORDERED: PHENYLEPHRINE/KETOROLAC 4 ML VIAL IO ONE ×2 (08:15→10:27)
[2020-01-23] MEDS ORDERED: OFLOXACIN 0.3% OPHTHALMIC SOLUTION 5 ML BOTTLE OP SCH (08:15)
[2020-01-23] MEDS ORDERED: CYCLOPENTOLATE HCL 1% OPHTH SOLN 2 ML BOTTLE OP SCH (08:15)
[2020-01-23] MEDS ORDERED: TROPICAMIDE 1% OPHTH SOLN 15 ML BOTTLE OP SCH (08:15)
[2020-01-23] MEDS ORDERED: PHENYLEPHRINE 2.5% OPHTH SOLN 15 ML BOTTLE ONE (08:54)
[2020-01-23] MEDS ORDERED: TROPICAMIDE 1% OPHTH SOLN 15 ML BOTTLE ONE (08:54)
[2020-01-23] MEDS ORDERED: OFLOXACIN 0.3% OPHTHALMIC SOLUTION 5 ML BOTTLE ONE (08:54)
[2020-01-23] MEDS ORDERED: KETOROLAC TROMETHAMINE 0.5% EYE DROP 1 DROP DROPS ONE (08:54)
[2020-01-23] MEDS ORDERED: CYCLOPENTOLATE HCL 1% OPHTH SOLN 2 ML BOTTLE ONE (08:54)
[2020-01-23 09:34] VITALS: TEMP 97.4
[2020-01-23] MEDS ORDERED: TETRACAINE 0.5% OPHTH SOLN 2 ML BOTTLE TP ONE (10:12)
[2020-01-23] MEDS ORDERED: LIDOCAINE HCL/PF 1% SDV 5ML VIAL ONE (10:15)
[2020-01-23] MEDS ORDERED: TETRACAINE 0.5% OPHTH SOLN 2 ML BOTTLE ONE (10:15)
[2020-01-23] MEDS ORDERED: POVIDONE-IODINE 5% OPHTHALMIC PREP 30 ML SOLUTION ONE (10:15)
[2020-01-23] MEDS ORDERED: MIDAZOLAM HCL 2 MG/2 ML SINGLE DOSE VIAL ONE (10:16)
[2020-01-23] MEDS ORDERED: LIDOCAINE HCL 1% PRESERVATIVE FREE - 30ML VIAL IO ONE (10:25)
[2020-01-23] MEDS ORDERED: CHONDROITIN SU A/HYALUR SOD 1 KIT IO ONE (10:27)
[2020-01-23 11:45] VITALS: BP 145/81; PULSE 86
[2020-01-23] MEDS ORDERED: CHONDROITIN SU A/HYALUR SOD 1 KIT ONE (12:59)
--- NOTE | 2020-01-23 23:35 | SPEC ---
DATE OF OPERATION: 01/23/2020 OPERATION: Phacoemulsification with posterior chamber intraocular lens implantation, left eye. Lens used [id number], 22.5 Diopter power, Serial No. [id number]. PREOPERATIVE DIAGNOSIS: Cataract, left eye. POSTOPERATIVE DIAGNOSIS: Cataract, left eye. SURGEON: Christopher Mullen M.D. ANESTHESIA: Topical MAC. COMPLICATIONS: None. PROCEDURE: The patient was brought to the operating room and correctly identified along with the operative site and the correct intraocular lens ulrich. The patient was then prepped and draped in the usual sterile fashion including 5% Betadine solution in the conjunctival sac and an eyelid drape. An eyelid speculum was then placed in the eye. A paracentesis port was created and approximately 0.5 mL of preservative free Lidocaine was then injected into the eye. Viscoelastic was then injected to inflate the anterior chamber. A temporal clear corneal wound was created. A continuous circular capsulorrhexis was performed. The nucleus was then hydrodissected with BSS and removed with phacoemulsification. The remaining cortical material was irrigated and aspirated. Viscoelastic was injected to inflate the capsular bag and the intraocular lens was then implanted into the capsular bag. The remaining Viscoelastic was irrigated and aspirated from the eye. The IOL was noted to be well centered and completely covered by the anterior capsulorrhexis. Topical vancomycin was placed and the eye patched and shielded. All wounds were tested and found to be watertight. No suture was placed. The eye was then shielded. The patient was then discharged from the operating room in stable condition. CHRISTOPHER MULLEN M.D. ADONIS/[id number]
== END 2020-01-23 11:45 | disposition home or self-care (01) ==
LOC: JASU-SURG 07:49
PROVIDERS: ATTEND Ophthalmology
PROC: 08RK3JZ Replacement of Left Lens with Synthetic Substitute, Percutaneous Approach (ICD-10-PCS; principal; 2020-01-23 10:00)
DX: H26.9 Unspecified cataract (principal)
CPT/HCPCS: 82962; J1097

== ENCOUNTER 2023-05-02 12:42 | Inpatient (IN) | payer OTHER ==
[2023-05-02 14:30] LABS: BASO % 2.7 % (0-2.0); EOS % 2.1 % (0-4.5); HEMATOCRIT 37.4 % (35.4-49); HEMOGLOBIN 12.4 GM/dL (11.7-16.9); LYMPH % 10.4 % (8-40); MCH 30.1 pg (25.7-33.7); MCHC 33.1 g/dl (32.0-35.9); MEAN CELL VOLUME 90.7 fl (80-96); MONO % 11.9 % (3.8-10.2); NEUT % 72.9 % (42.8-82.8); PLATELET COUNT 332 10^3/uL (134-434); RBC 4.13 M/mm3 (4.00-5.60); RDW 17.5 % (11.9-15.9); WHITE BLOOD COUNT 5.5 K/mm3 (4.0-10.0)
[2023-05-02 14:38] LABS: INR 1.64 (0.83-1.09); PROTHROMBIN TIME (PATIENT) 18.9 SEC (9.7-13.0)
[2023-05-02 14:55] LABS: POTASSIUM 4.3 mmol/L (3.5-5.1)
[2023-05-02 14:57] LABS: CALCIUM 9.4 mg/dL (8.5-10.1)
[2023-05-02 14:58] LABS: ALBUMIN 3.5 g/dl (3.4-5.0); BLOOD UREA NITROGEN 11.6 mg/dL (7-18); MAGNESIUM 2.3 mg/dL (1.8-2.4)
[2023-05-02 15:01] LABS: CREATININE 1.1 mg/dL (0.55-1.3)
[2023-05-02 15:02] LABS: BILIRUBIN,TOTAL 0.7 mg/dL (0.2-1)
[2023-05-02 15:03] LABS: TOT PROT 6.7 g/dl (6.4-8.2)
[2023-05-02 15:06] LABS: N-TERMINAL BNP 12191.6 pg/ml (5-450)
[2023-05-02] MEDS ORDERED: ACETAMINOPHEN 325 MG TABLET (FP) PO PRN (16:02)
[2023-05-02] MEDS ORDERED: FUROSEMIDE 40 MG/4 ML INJECTABLE VIAL IVPUSH ONE (17:01)
[2023-05-02] MEDS ORDERED: FUROSEMIDE 40 MG/4 ML INJECTABLE VIAL ONE (17:22)
[2023-05-02] MEDS: INSULIN SLIDING SCALE (NOVOLOG) 1 VIAL SQ SCH ×2 (17:30→22:07)
[2023-05-02] MEDS ORDERED: APIXABAN 5 MG TABLET ONE (21:51)
[2023-05-02] MEDS ORDERED: ATORVASTATIN CA 40 MG TABLET (FP) ONE (21:52)
[2023-05-02] MEDS ORDERED: RANOLAZINE E.R. 500 MG TABLET (FP) ONE (21:52)
[2023-05-02] MEDS: ATORVASTATIN CA 40 MG TABLET (FP) PO SCH (22:06)
[2023-05-02] MEDS: APIXABAN 5 MG TABLET PO SCH (22:06)
[2023-05-02] MEDS: RANOLAZINE E.R. 500 MG TABLET (FP) PO SCH (22:07)
[2023-05-03] MEDS: INSULIN SLIDING SCALE (NOVOLOG) 1 VIAL SQ SCH ×4 (07:59→21:47)
[2023-05-03] MEDS ORDERED: LOSARTAN POTASSIUM 50 MG TABLET ONE (08:59)
[2023-05-03] MEDS ORDERED: APIXABAN 5 MG TABLET ONE (08:59)
[2023-05-03] MEDS ORDERED: amLODIPine BESYLATE 10 MG TABLET (FP) ONE (08:59)
[2023-05-03] MEDS ORDERED: LEVOTHYROXINE NA 25 MCG TABLET (FP) ONE (09:00)
[2023-05-03] MEDS ORDERED: RANOLAZINE E.R. 500 MG TABLET (FP) ONE (09:00)
[2023-05-03] MEDS ORDERED: FUROSEMIDE 40 MG/4 ML INJECTABLE VIAL ONE (09:00)
[2023-05-03] MEDS: LEVOTHYROXINE NA 25 MCG TABLET (FP) PO SCH (10:00)
[2023-05-03] MEDS: GLIMEPIRIDE 4 MG TABLET PO SCH (10:00)
[2023-05-03] MEDS: LOSARTAN POTASSIUM 50 MG TABLET PO SCH (11:07)
[2023-05-03] MEDS: APIXABAN 5 MG TABLET PO SCH ×2 (11:07→21:47)
[2023-05-03] MEDS: FUROSEMIDE 40 MG/4 ML INJECTABLE VIAL IVPUSH SCH (11:08)
[2023-05-03] MEDS: RANOLAZINE E.R. 500 MG TABLET (FP) PO SCH ×2 (11:08→21:47)
[2023-05-03] MEDS: amLODIPine BESYLATE 10 MG TABLET (FP) PO SCH (11:08)
[2023-05-03 11:40] LABS: HEMATOCRIT 40.7 % (35.4-49); HEMOGLOBIN 13.4 GM/dL (11.7-16.9); MCH 30.4 pg (25.7-33.7); MEAN CELL VOLUME 92.4 fl (80-96); PLATELET COUNT 373 10^3/uL (134-434); RBC 4.41 M/mm3 (4.00-5.60); RDW 17.4 % (11.9-15.9); WHITE BLOOD COUNT 7.6 K/mm3 (4.0-10.0)
[2023-05-03 11:59] LABS: POTASSIUM 4.8 mmol/L (3.5-5.1)
[2023-05-03 12:07] LABS: ALBUMIN 3.9 g/dl (3.4-5.0); CALCIUM 10.1 mg/dL (8.5-10.1); MAGNESIUM 2.3 mg/dL (1.8-2.4)
[2023-05-03 12:08] LABS: BLOOD UREA NITROGEN 11.4 mg/dL (7-18)
[2023-05-03 12:10] LABS: CREATININE 1.2 mg/dL (0.55-1.3)
[2023-05-03 12:12] LABS: TOT PROT 7.5 g/dl (6.4-8.2)
[2023-05-03] MEDS: ATORVASTATIN CA 40 MG TABLET (FP) PO SCH (21:47)
[2023-05-03 22:04] LABS: EPI CELLS 4 /uL (0-25.1); HYALINE CASTS 1 /uL (0-3.1); URINE APPEARANCE CLEAR; URINE BACTERIA 3 /uL (0-1359); URINE BILIRUBIN NEGATIVE (NEGATIVE); URINE COLOR YELLOW; URINE GLUCOSE (UA) 3+ (NEGATIVE); URINE KETONE TRACE (NEGATIVE); URINE LEUK ESTERASE NEGATIVE (NEGATIVE); URINE NITRITE NEGATIVE (NEGATIVE); URINE PROTEIN 2+ (NEGATIVE); URINE RBC 4 /uL (0-23.9); URINE UROBILINOGEN 0.2 mg/dL (0.2-1.0); URINE WBC 7 /uL (0-25.8)
[2023-05-04] MEDS: LEVOTHYROXINE NA 25 MCG TABLET (FP) PO SCH (06:35)
[2023-05-04] MEDS: GLIMEPIRIDE 4 MG TABLET PO SCH (06:36)
[2023-05-04] MEDS: INSULIN SLIDING SCALE (NOVOLOG) 1 VIAL SQ SCH ×4 (06:42→22:03)
[2023-05-04] MEDS: RANOLAZINE E.R. 500 MG TABLET (FP) PO SCH ×2 (09:32→22:03)
[2023-05-04] MEDS: APIXABAN 5 MG TABLET PO SCH ×2 (09:32→22:02)
[2023-05-04] MEDS: amLODIPine BESYLATE 10 MG TABLET (FP) PO SCH (09:32)
[2023-05-04] MEDS: FUROSEMIDE 40 MG/4 ML INJECTABLE VIAL IVPUSH SCH (09:32)
[2023-05-04] MEDS: LOSARTAN POTASSIUM 50 MG TABLET PO SCH (09:32)
[2023-05-04 09:50] LABS: POTASSIUM 3.7 mmol/L (3.5-5.1)
[2023-05-04 09:52] LABS: CALCIUM 9.6 mg/dL (8.5-10.1)
[2023-05-04 09:53] LABS: BLOOD UREA NITROGEN 11.1 mg/dL (7-18); MAGNESIUM 2.1 mg/dL (1.8-2.4)
[2023-05-04 09:56] LABS: CREATININE 1.1 mg/dL (0.55-1.3)
[2023-05-04 15:00] VITALS: BMI 25.2
[2023-05-04] MEDS ORDERED: INSULIN (NOVOLOG) ASPART 100 UNITS/ML 10ML VIAL ONE (17:31)
[2023-05-04] MEDS: ATORVASTATIN CA 40 MG TABLET (FP) PO SCH (22:02)
[2023-05-05] MEDS: INSULIN SLIDING SCALE (NOVOLOG) 1 VIAL SQ SCH ×3 (06:46→16:51)
[2023-05-05] MEDS ORDERED: metFORMIN HCL 500 MG TABLET (FP) PO SCH (07:00)
[2023-05-05] MEDS: LEVOTHYROXINE NA 25 MCG TABLET (FP) PO SCH (07:03)
[2023-05-05 07:39] VITALS: RESP 18
[2023-05-05] MEDS: LOSARTAN POTASSIUM 50 MG TABLET PO SCH (09:49)
[2023-05-05] MEDS: amLODIPine BESYLATE 10 MG TABLET (FP) PO SCH (09:50)
[2023-05-05] MEDS: FUROSEMIDE 40 MG/4 ML INJECTABLE VIAL IVPUSH SCH ×2 (09:50→10:50)
[2023-05-05] MEDS: APIXABAN 5 MG TABLET PO SCH (09:50)
[2023-05-05] MEDS: RANOLAZINE E.R. 500 MG TABLET (FP) PO SCH (09:50)
[2023-05-05] MEDS ORDERED: FUROSEMIDE 40 MG TABLET (FP) PO SCH (10:15)
[2023-05-05] MEDS ORDERED: GLIMEPIRIDE 2 MG TABLET PO SCH (10:45)
[2023-05-05] MEDS: GLIMEPIRIDE 4 MG TABLET PO SCH (10:50)
[2023-05-05 13:58] VITALS: BP 144/70; PULSE 58; TEMP 97.8
== END 2023-05-05 17:06 | DRG 291 ==
LOC: JER 12:42 → JERBED 13:20 → J8W 05-03 14:33
PROVIDERS: ADMIT Family Medicine; ATTEND Family Medicine
DX: I11.0 Hypertensive heart disease with heart failure (principal); I50.33 Acute on chronic diastolic (congestive) heart failure; I48.11 Longstanding persistent atrial fibrillation; I24.8 Other forms of acute ischemic heart disease; I25.10 Atherosclerotic heart disease of native coronary artery without angina pectoris; Z95.1 Presence of aortocoronary bypass graft; E03.9 Hypothyroidism, unspecified; E78.5 Hyperlipidemia, unspecified; I25.2 Old myocardial infarction; I34.0 Nonrheumatic mitral (valve) insufficiency; I27.20 Pulmonary hypertension, unspecified; R19.7 Diarrhea, unspecified; Z79.4 Long term (current) use of insulin; E11.42 Type 2 diabetes mellitus with diabetic polyneuropathy
CPT/HCPCS: 0241U-QW; 36415; 71045-TC-FY; 71275-TC; 80048; 80053; 81003; 82570; 82962; 83036; 83735; 83880; 84156; 84439; 84443; 84484; 85025; 85027; 85379; 85610; 85730; 93005; 93010; 94010; 97116-GP; 97161-GP; 99285-25; Q9967

== ENCOUNTER 2023-07-12 10:12 | Inpatient (IN) | payer OTHER ==
[2023-07-12 12:54] LABS: EOS % 1.7 % (0-4.5); HEMATOCRIT 34.4 % (35.4-49); HEMOGLOBIN 11.6 GM/dL (11.7-16.9); LYMPH % 7.4 % (8-40); MCH 30.4 pg (25.7-33.7); MCHC 33.8 g/dl (32.0-35.9); MEAN CELL VOLUME 89.9 fl (80-96); MEAN PLT VOLUME 8.7 fl (7.5-11.1); MONO % 8.4 % (3.8-10.2); NEUT % 81.5 % (42.8-82.8); PLATELET COUNT 280 10^3/uL (134-434); RBC 3.83 M/mm3 (4.00-5.60); RDW 19.6 % (11.9-15.9); WHITE BLOOD COUNT 8.6 K/mm3 (4.0-10.0)
[2023-07-12 12:58] LABS: INR 2.1 (0.83-1.09); PROTHROMBIN TIME (PATIENT) 24.2 SEC (9.7-13.0)
[2023-07-12 13:01] LABS: ACTIVATED PTT 44.2 SECONDS (25.2-36.5)
[2023-07-12 13:11] LABS: CHLORIDE 110 mmol/L (98-107); POTASSIUM 4.3 mmol/L (3.5-5.1); SODIUM 142 mmol/L (136-145)
[2023-07-12 13:13] LABS: CALCIUM 8.7 mg/dL (8.5-10.1)
[2023-07-12 13:14] LABS: ANION GAP 5 MMOL/L (8-16); BLOOD UREA NITROGEN 9.4 mg/dL (7-18); CO2 27 mmol/L (21-32); MAGNESIUM 2.1 mg/dL (1.8-2.4)
[2023-07-12 13:17] LABS: CREATININE 1.1 mg/dL (0.55-1.3); SGOT/AST 17 U/L (15-37); SGPT/ALT 14 U/L (13-61)
[2023-07-12 13:18] LABS: BILIRUBIN,TOTAL 0.7 mg/dL (0.2-1); TOT PROT 6.3 g/dl (6.4-8.2)
[2023-07-12 13:20] LABS: ALK PHOS 78 U/L (45-117)
[2023-07-12 13:32] LABS: GLUCOSE,RANDOM 31 mg/dL (74-106)
[2023-07-12] MEDS ORDERED: VANCOMYCIN 1,000 MG in DEXTROSE 5%-WATER - 250 ML IVPB ONE (14:19)
[2023-07-12] MEDS ORDERED: DEXTROSE 50%-WATER - 25 GM/50 ML VIAL IVPUSH ONE ×2 (14:19→14:20)
[2023-07-12] MEDS ORDERED: PIPERACILLIN/TAZOB 4.5 GM 4.5 GM in DEXTROSE 5%-WATER 100 ML IVPB ONE (14:19)
[2023-07-12] MEDS ORDERED: DEXTROSE 50%-WATER 25 GM/50 ML DISP.SYRIN ONE ×2 (14:20→14:27)
[2023-07-12] MEDS ORDERED: PIPERACILLIN/TAZOB 4.5 GM 4.5 GM/100 ML BAG IVPB ONE (14:27)
[2023-07-12] MEDS ORDERED: VANCOMYCIN 1 GRAM (PRE-DOCKED) 1,000 MG/250 ML BAG IVPB ONE (14:27)
[2023-07-12] MEDS ORDERED: ACETAMINOPHEN 325 MG TABLET (FP) PO PRN (22:46)
[2023-07-12] MEDS ORDERED: ATORVASTATIN CA 80 MG TABLET (FP) PO SCH (23:00)
[2023-07-13 00:27] VITALS: BMI 24.0
[2023-07-13 01:50] LABS: PH,URINE 8.5 (5.0-8.0); URINE APPEARANCE CLEAR; URINE BILIRUBIN NEGATIVE (NEGATIVE); URINE COLOR YELLOW; URINE GLUCOSE (UA) 1+ (NEGATIVE); URINE KETONE NEGATIVE (NEGATIVE); URINE LEUK ESTERASE NEGATIVE (NEGATIVE); URINE NITRITE NEGATIVE (NEGATIVE); URINE PROTEIN TRACE (NEGATIVE); URINE UROBILINOGEN 0.2 mg/dL (0.2-1.0)
[2023-07-13 08:32] LABS: BASO % 1.4 % (0-2.0); EOS % 3.8 % (0-4.5); HEMATOCRIT 33.5 % (35.4-49); HEMOGLOBIN 11.4 GM/dL (11.7-16.9); LYMPH % 11.2 % (8-40); MCH 30.4 pg (25.7-33.7); MCHC 34.1 g/dl (32.0-35.9); MEAN CELL VOLUME 89.2 fl (80-96); MEAN PLT VOLUME 8.7 fl (7.5-11.1); MONO % 11.8 % (3.8-10.2); NEUT % 71.8 % (42.8-82.8); PLATELET COUNT 289 10^3/uL (134-434); RBC 3.75 M/mm3 (4.00-5.60); RDW 19.4 % (11.9-15.9); WHITE BLOOD COUNT 6.9 K/mm3 (4.0-10.0)
[2023-07-13 08:53] LABS: CALCIUM 8.8 mg/dL (8.5-10.1)
[2023-07-13 08:54] LABS: BLOOD UREA NITROGEN 8.1 mg/dL (7-18); MAGNESIUM 1.9 mg/dL (1.8-2.4)
[2023-07-13 08:57] LABS: CREATININE 0.9 mg/dL (0.55-1.3)
[2023-07-13] MEDS ORDERED: FUROSEMIDE 40 MG/4 ML INJECTABLE VIAL IVPUSH ONE (09:17)
[2023-07-13] MEDS ORDERED: LEVOTHYROXINE NA 25 MCG TABLET (FP) PO SCH (10:00)
[2023-07-13] MEDS ORDERED: AZITHROMYCIN 250 MG TABLET PO SCH (10:00)
[2023-07-13] MEDS ORDERED: CEFTRIAXONE 1,000 MG in DEXTROSE 5%-WATER - 50 ML IVPB SCH (10:00)
[2023-07-13] MEDS: LOSARTAN POTASSIUM 50 MG TABLET PO SCH (10:01)
[2023-07-13] MEDS: APIXABAN 5 MG TABLET PO SCH (10:01)
[2023-07-13] MEDS: RANOLAZINE E.R. 500 MG TABLET (FP) PO SCH (10:01)
[2023-07-13] MEDS ORDERED: DONEPEZIL HCL 5 MG TABLET (FP) PO SCH (22:00)
[2023-07-14] MEDS: hydrALAZINE HCL 10 MG TABLET PO SCH ×3 (00:23→13:17)
[2023-07-14] MEDS: RANOLAZINE E.R. 500 MG TABLET (FP) PO SCH ×2 (00:23→09:20)
[2023-07-14] MEDS: APIXABAN 5 MG TABLET PO SCH ×2 (00:23→09:19)
[2023-07-14 03:35] VITALS: RESP 18
[2023-07-14] MEDS ORDERED: LEVOTHYROXINE NA 25 MCG TABLET (FP) PO SCH (07:00)
[2023-07-14] MEDS: LOSARTAN POTASSIUM 50 MG TABLET PO SCH (09:20)
[2023-07-14] MEDS ORDERED: ESCITALOPRAM OXALATE 10 MG TABLET PO SCH (10:00)
[2023-07-14 15:52] VITALS: TEMP 97.8
[2023-07-14 18:53] VITALS: BP 142/75; PULSE 74
[2023-07-17] MEDS ORDERED: LEVOTHYROXINE NA 50 MCG TABLET (FP) PO SCH (07:00)
== END 2023-07-14 19:23 | disposition home or self-care (01) | DRG 638 ==
LOC: JER 10:12 → JERBED 16:39 → J4W 22:19 → OBSVTOIN 07-13 11:08
PROVIDERS: ADMIT Internal Medicine; ATTEND Internal Medicine
DX: E11.649 Type 2 diabetes mellitus with hypoglycemia without coma (principal); I50.32 Chronic diastolic (congestive) heart failure; I11.0 Hypertensive heart disease with heart failure; I25.10 Atherosclerotic heart disease of native coronary artery without angina pectoris; I48.91 Unspecified atrial fibrillation; E03.9 Hypothyroidism, unspecified; D64.9 Anemia, unspecified; F03.90 Unspecified dementia, unspecified severity, without behavioral disturbance, psychotic disturbance, mood disturbance, and anxiety; R26.9 Unspecified abnormalities of gait and mobility; R00.1 Bradycardia, unspecified; E78.5 Hyperlipidemia, unspecified
CPT/HCPCS: 0241U-QW; 36415; 70450-TC; 71045-TC-FY; 71250-TC; 72125-TC; 80048; 80053; 81003; 82533; 82962; 83036; 83525; 83735; 83880; 84443; 84484; 85025; 85610; 85730; 86850; 86900; 86901; 87040; 87086; 93005; 93010; 97116-GP; 97162-GP; 99285-25; G0378

== ENCOUNTER 2024-01-08 03:03 | Inpatient (IN) | payer OTHER ==
[2024-01-08 04:06] LABS: BASO % 0.7 % (0-2.0); HEMATOCRIT 36.6 % (35.4-49); HEMOGLOBIN 11.8 GM/dL (11.7-16.9); MCH 30.3 pg (25.7-33.7); MCHC 32.4 g/dl (32.0-35.9); MEAN CELL VOLUME 93.7 fl (80-96); MEAN PLT VOLUME 9.6 fl (7.5-11.1); MONO % 7.4 % (3.8-10.2); NEUT % 88.9 % (42.8-82.8); PLATELET COUNT 251 10^3/uL (134-434); RDW 19.5 % (11.9-15.9); WHITE BLOOD COUNT 17.4 K/mm3 (4.0-10.0)
[2024-01-08 04:11] LABS: VENOUS BASE EXCESS -8.4 mmol/L (-2-2); VENOUS O2 SATURATION 70.7 % (70-80); VENOUS PCO2 36.8 mmHg (38-52); VENOUS PH 7.291 (7.310-7.410)
[2024-01-08 04:17] LABS: CHLORIDE 113 mmol/L (98-107); SODIUM 140 mmol/L (136-145)
[2024-01-08 04:20] LABS: ALBUMIN 3.8 g/dl (3.4-5.0); BLOOD UREA NITROGEN 50.1 mg/dL (7-18); CO2 18 mmol/L (21-32); GLUCOSE,RANDOM 199 mg/dL (74-106)
[2024-01-08 04:20] LABS: MAGNESIUM 2.7 mg/dL (1.8-2.4)
[2024-01-08 04:22] LABS: BILIRUBIN,DIRECT 0.4 mg/dL (0.0-0.2)
[2024-01-08 04:23] LABS: CREATININE 1.8 mg/dL (0.55-1.3)
[2024-01-08 04:24] LABS: BILIRUBIN,TOTAL 2.4 mg/dL (0.2-1)
[2024-01-08 04:26] LABS: ALK PHOS 114 U/L (45-117)
[2024-01-08 04:29] LABS: N-TERMINAL BNP > 35000.0 pg/ml (5-450)
[2024-01-08 05:15] LABS: LACTIC ACID 3.4 mmol/L (0.4-2.0)
[2024-01-08 05:24] LABS: ANION GAP 9 mmol/L (4-13); CALCIUM 9.6 mg/dL (8.5-10.1); POTASSIUM > 10.0 mmol/L (3.5-5.1); SGOT/AST 2185 U/L (15-37); SGPT/ALT 1309 U/L (13-61)
[2024-01-08] MEDS ORDERED: AZITHROMYCIN IVPB 500 MG/250 ML BAG IVPB ONE (05:28)
[2024-01-08] MEDS ORDERED: FUROSEMIDE 40 MG/4 ML INJECTABLE VIAL ONE (05:28)
[2024-01-08] MEDS: AZITHROMYCIN IVPB 500 MG in DEXTROSE 5%-WATER - 250 ML IVPB ONE (05:29)
[2024-01-08] MEDS: FUROSEMIDE 40 MG/4 ML INJECTABLE VIAL IVPUSH ONE (05:29)
[2024-01-08] MEDS: ASPIRIN 81 MG CHEWABLE TABLETS PO ONE (05:31)
[2024-01-08] MEDS ORDERED: ASPIRIN 81 MG CHEWABLE TABLETS ONE (05:32)
[2024-01-08 06:19] LABS: POTASSIUM 4.8 mmol/L (3.5-5.1)
[2024-01-08 06:21] LABS: CALCIUM 9.7 mg/dL (8.5-10.1)
[2024-01-08 06:23] LABS: ALBUMIN 3.6 g/dl (3.4-5.0); BLOOD UREA NITROGEN 50.2 mg/dL (7-18)
[2024-01-08 06:26] LABS: CREATININE 1.7 mg/dL (0.55-1.3)
[2024-01-08 06:27] LABS: BILIRUBIN,TOTAL 2.4 mg/dL (0.2-1); TOT PROT 6.8 g/dl (6.4-8.2)
[2024-01-08 09:19] LABS: POTASSIUM 4.4 mmol/L (3.5-5.1)
[2024-01-08 09:21] LABS: CALCIUM 9.4 mg/dL (8.5-10.1)
[2024-01-08 09:22] LABS: ALBUMIN 3.4 g/dl (3.4-5.0); BLOOD UREA NITROGEN 51.7 mg/dL (7-18)
[2024-01-08 09:25] LABS: CREATININE 1.6 mg/dL (0.55-1.3)
[2024-01-08 09:26] LABS: TOT PROT 6.6 g/dl (6.4-8.2)
[2024-01-08 09:27] LABS: BILIRUBIN,TOTAL 2.1 mg/dL (0.2-1)
[2024-01-08 10:27] LABS: EPI CELLS 18 /uL (0-25.1); HYALINE CASTS 2 /uL (0-3.1); URINE APPEARANCE CLEAR; URINE BACTERIA 3 /uL (0-1359); URINE BILIRUBIN NEGATIVE (NEGATIVE); URINE COLOR YELLOW; URINE GLUCOSE (UA) 2+ (NEGATIVE); URINE KETONE TRACE (NEGATIVE); URINE LEUK ESTERASE NEGATIVE (NEGATIVE); URINE NITRITE NEGATIVE (NEGATIVE); URINE PROTEIN 2+ (NEGATIVE); URINE WBC 21 /uL (0-25.8)
[2024-01-08] MEDS ORDERED: ACETAMINOPHEN 325 MG TABLET (FP) PO PRN (10:28)
[2024-01-08 10:45] LABS: URINE RBC 126.8 /uL (0-23.9)
[2024-01-08] MEDS ORDERED: CEFTRIAXONE 1 GM/50 ML BAG ONE (11:47)
[2024-01-08] MEDS: CEFTRIAXONE 1 GM in DEXTROSE 5%-WATER - 50 ML IVPB SCH (11:52)
[2024-01-08] MEDS ORDERED: INSULIN (NOVOLOG) ASPART 100 UNITS/ML 10ML VIAL ONE (12:40)
[2024-01-08] MEDS: INSULIN ASPART SLIDING SCALE (NOVOLOG) 1 VIAL SQ SCH (12:47)
[2024-01-08] MEDS ORDERED: PANTOPRAZOLE 20 MG TABLET PO ONE (15:19)
[2024-01-08] MEDS: PANTOPRAZOLE 20 MG TABLET PO SCH (15:39)
[2024-01-08] MEDS: RANOLAZINE E.R. 500 MG TABLET (FP) PO SCH (21:20)
[2024-01-08] MEDS: APIXABAN 5 MG TABLET PO SCH (21:20)
[2024-01-08] MEDS: DONEPEZIL HCL 5 MG TABLET (FP) PO SCH (21:20)
[2024-01-08] MEDS: LATANOPROST 0.005% OPHTH SOLN 2.5ML BOTTLE OD SCH (21:43)
[2024-01-08] MEDS ORDERED: ATORVASTATIN CA 80 MG TABLET (FP) PO SCH (22:00)
[2024-01-09 07:40] LABS: BASO % 0.4 % (0-2.0); EOS % 0.1 % (0-4.5); HEMATOCRIT 33.6 % (35.4-49); HEMOGLOBIN 11.1 GM/dL (11.7-16.9); LYMPH % 6.4 % (8-40); MCH 29.8 pg (25.7-33.7); MCHC 33.1 g/dl (32.0-35.9); MEAN CELL VOLUME 90.1 fl (80-96); MEAN PLT VOLUME 8.8 fl (7.5-11.1); MONO % 8.4 % (3.8-10.2); NEUT % 84.7 % (42.8-82.8); PLATELET COUNT 243 10^3/uL (134-434); RBC 3.73 M/mm3 (4.00-5.60); RDW 19.2 % (11.9-15.9); WHITE BLOOD COUNT 12.2 K/mm3 (4.0-10.0)
[2024-01-09 07:56] LABS: POTASSIUM 3.3 mmol/L (3.5-5.1)
[2024-01-09 08:05] LABS: ALBUMIN 2.9 g/dl (3.4-5.0)
[2024-01-09 08:06] LABS: BILIRUBIN,TOTAL 1.5 mg/dL (0.2-1); BLOOD UREA NITROGEN 40.3 mg/dL (7-18); MAGNESIUM 2.1 mg/dL (1.8-2.4); TOT PROT 5.9 g/dl (6.4-8.2)
[2024-01-09 08:08] LABS: CREATININE 1.2 mg/dL (0.55-1.3)
[2024-01-09] MEDS: KCL 10 MEQ IVPB 10 MEQ/100 ML INFUS.BAG IVPB SCH (08:36)
[2024-01-09] MEDS: ESCITALOPRAM OXALATE 10 MG TABLET PO SCH (10:09)
[2024-01-09] MEDS: FUROSEMIDE 40 MG/4 ML INJECTABLE VIAL IVPUSH SCH (10:10)
[2024-01-09] MEDS: metoPROLOL SUCCINATE 25 MG TAB.SR.24H (FP) PO SCH (10:10)
[2024-01-09] MEDS: AZITHROMYCIN IVPB 500 MG/250 ML BAG IVPB SCH (11:34)
[2024-01-09] MEDS ORDERED: INSULIN (NOVOLOG) ASPART 100 UNITS/ML 10ML VIAL ONE ×2 (12:04→17:09)
[2024-01-09] MEDS: DORZOLAMIDE 2% HCL OPHTHALMIC SOLUTION 10 ML BOTTLE OD SCH (21:24)
[2024-01-09] MEDS: TIMOLOL 0.5% OPHTHALMIC SOL 5 ML BOTTLE OD SCH (21:28)
[2024-01-09] MEDS ORDERED: DORZOLAMIDE 2% HCL OPHTHALMIC SOLUTION 10 ML BOTTLE OD SCH (22:00)
[2024-01-09] MEDS ORDERED: PATIENT'S OWN MEDICATION (NON-FORMULARY) (Dorzolamide Hcl/Timolol Maleat [Cosopt Eye Drops OD SCH (22:00)
[2024-01-09] MEDS ORDERED: TIMOLOL 0.5% OPHTHALMIC SOL 5 ML BOTTLE OD SCH (22:00)
[2024-01-10] MEDS ORDERED: INSULIN (NOVOLOG) ASPART 100 UNITS/ML 10ML VIAL ONE ×3 (05:44→16:55)
[2024-01-10] MEDS: IRON SUCROSE INJECTION 200 MG in SODIUM CHLORIDE 100 ML IVPB ONE (09:54)
[2024-01-10 11:23] LABS: POTASSIUM 3.3 mmol/L (3.5-5.1)
[2024-01-10 11:24] LABS: CALCIUM 8.6 mg/dL (8.5-10.1)
[2024-01-10 12:03] LABS: ALBUMIN 2.6 g/dl (3.4-5.0)
[2024-01-10 12:06] LABS: BILIRUBIN,DIRECT 0.7 mg/dL (0.0-0.2)
[2024-01-10 12:08] LABS: BILIRUBIN,TOTAL 1.3 mg/dL (0.2-1); TOT PROT 5.3 g/dl (6.4-8.2)
[2024-01-10] MEDS: POTASSIUM CHLORIDE ORAL LIQUID 20 MEQ/15 ML PO ONE (14:48)
[2024-01-11] MEDS ORDERED: INSULIN (NOVOLOG) ASPART 100 UNITS/ML 10ML VIAL ONE (05:57)
[2024-01-11 06:43] LABS: EOS % 4.5 % (0-4.5); HEMATOCRIT 34.5 % (35.4-49); HEMOGLOBIN 11.4 GM/dL (11.7-16.9); LYMPH % 11.7 % (8-40); MCH 29.8 pg (25.7-33.7); MEAN CELL VOLUME 90.3 fl (80-96); MONO % 13.8 % (3.8-10.2); PLATELET COUNT 218 10^3/uL (134-434); RBC 3.82 M/mm3 (4.00-5.60); RDW 18.8 % (11.9-15.9)
[2024-01-11 07:28] LABS: POTASSIUM 3.3 mmol/L (3.5-5.1)
[2024-01-11 07:38] LABS: CALCIUM 8.3 mg/dL (8.5-10.1)
[2024-01-11 07:39] LABS: ALBUMIN 2.6 g/dl (3.4-5.0); BLOOD UREA NITROGEN 24.9 mg/dL (7-18); MAGNESIUM 1.7 mg/dL (1.8-2.4)
[2024-01-11 07:42] LABS: CREATININE 0.9 mg/dL (0.55-1.3)
[2024-01-11 07:44] LABS: BILIRUBIN,TOTAL 1.2 mg/dL (0.2-1); TOT PROT 5.3 g/dl (6.4-8.2)
[2024-01-11] MEDS: MAGNESIUM 1GM/D5W 100ML - 100 ML IVPB IVPB ONE (09:55)
[2024-01-11] MEDS: POTASSIUM CHLORIDE ORAL LIQUID 20 MEQ/15 ML PO ONE (09:57)
[2024-01-11] MEDS: MAGNESIUM OXIDE 400 MG TABLET (FP) PO SCH (10:07)
[2024-01-11] MEDS: POTASSIUM CHLORIDE TABS 20 MEQ TABLET.ER (FP) PO SCH (10:08)
[2024-01-11 23:53] VITALS: BMI 23.8
[2024-01-12] MEDS ORDERED: INSULIN (NOVOLOG) ASPART 100 UNITS/ML 10ML VIAL ONE (06:40)
[2024-01-12] MEDS: FUROSEMIDE 40 MG/4 ML INJECTABLE VIAL IVPUSH SCH (14:43)
[2024-01-13 06:06] VITALS: RESP 17
[2024-01-13 06:58] LABS: POTASSIUM 3.5 mmol/L (3.5-5.1)
[2024-01-13 07:03] LABS: CALCIUM 8.2 mg/dL (8.5-10.1)
[2024-01-13 07:04] LABS: ALBUMIN 2.6 g/dl (3.4-5.0); BLOOD UREA NITROGEN 19.1 mg/dL (7-18); MAGNESIUM 1.6 mg/dL (1.8-2.4)
[2024-01-13 07:07] LABS: CREATININE 0.9 mg/dL (0.55-1.3)
[2024-01-13 07:08] LABS: TOT PROT 5.5 g/dl (6.4-8.2)
[2024-01-13 08:10] LABS: POTASSIUM 3.3 mmol/L (3.5-5.1)
[2024-01-13 08:12] LABS: CALCIUM 8.4 mg/dL (8.5-10.1)
[2024-01-13 08:13] LABS: BLOOD UREA NITROGEN 18.2 mg/dL (7-18)
[2024-01-13 08:16] LABS: CREATININE 0.9 mg/dL (0.55-1.3)
[2024-01-13] MEDS: POTASSIUM CHLORIDE ORAL LIQUID 20 MEQ/15 ML PO ONE (10:23)
[2024-01-13] MEDS: POTASSIUM CHLORIDE TABS 20 MEQ TABLET.ER (FP) PO SCH (10:25)
[2024-01-13 15:03] VITALS: BP 160/86; PULSE 80; TEMP 98
== END 2024-01-13 13:27 | DRG 291 ==
LOC: JER 03:03 → JERBED 06:45 → J4W 16:44
PROVIDERS: ADMIT Family Medicine; ATTEND Family Medicine
DX: I11.0 Hypertensive heart disease with heart failure (principal); I50.33 Acute on chronic diastolic (congestive) heart failure; J18.9 Pneumonia, unspecified organism; J96.01 Acute respiratory failure with hypoxia; I48.92 Unspecified atrial flutter; I24.89 Other forms of acute ischemic heart disease; N17.9 Acute kidney failure, unspecified; I48.19 Other persistent atrial fibrillation; I25.10 Atherosclerotic heart disease of native coronary artery without angina pectoris; I25.2 Old myocardial infarction; I27.20 Pulmonary hypertension, unspecified; E78.5 Hyperlipidemia, unspecified; E11.9 Type 2 diabetes mellitus without complications; E03.9 Hypothyroidism, unspecified; R74.01 Elevation of levels of liver transaminase levels; E87.6 Hypokalemia; D64.9 Anemia, unspecified; F03.90 Unspecified dementia, unspecified severity, without behavioral disturbance, psychotic disturbance, mood disturbance, and anxiety
CPT/HCPCS: 0241U-QW; 36415; 71045-TC-FY; 76705-TC; 80048; 80053; 80076; 81003; 82248; 82550; 82553; 82728; 82803; 82962; 82977; 83036; 83540; 83550; 83605; 83735; 83880; 84484; 85025; 86704; 86803; 87040; 87077; 87081; 87086; 87340; 87517; 87899; 93005; 93010; 94660; 97116-GP; 97162-GP; 99285-25; J1756

== ENCOUNTER 2024-02-26 11:02 | Inpatient (IN) | payer OTHER ==
[2024-02-26 11:52] LABS: BASO % 0.7 % (0-2.0); EOS % 2.2 % (0-4.5); HEMATOCRIT 32.2 % (35.4-49); HEMOGLOBIN 10.6 GM/dL (11.7-16.9); LYMPH % 10.2 % (8-40); MCH 29.9 pg (25.7-33.7); MCHC 32.8 g/dl (32.0-35.9); MEAN PLT VOLUME 7.7 fl (7.5-11.1); MONO % 15.3 % (3.8-10.2); NEUT % 71.6 % (42.8-82.8); PLATELET COUNT 331 10^3/uL (134-434); RBC 3.54 M/mm3 (4.00-5.60); RDW 17.1 % (11.9-15.9); WHITE BLOOD COUNT 6.6 K/mm3 (4.0-10.0)
[2024-02-26 12:28] LABS: CALCIUM 9.2 mg/dL (8.5-10.1)
[2024-02-26 12:29] LABS: ALBUMIN 2.9 g/dl (3.4-5.0); BLOOD UREA NITROGEN 21.5 mg/dL (7-18)
[2024-02-26 12:32] LABS: CREATININE 1.4 mg/dL (0.55-1.3)
[2024-02-26 12:33] LABS: TOT PROT 6.2 g/dl (6.4-8.2)
[2024-02-26 12:37] LABS: N-TERMINAL BNP 8894.3 pg/ml (5-450)
[2024-02-26 18:52] LABS: EPI CELLS >36 /uL (0-25.1); HYALINE CASTS 1015 /uL (0-3.1); PH,URINE 5.5 (5.0-8.0); URINE APPEARANCE TURBID; URINE BACTERIA 26 /uL (0-1359); URINE BILIRUBIN NEGATIVE (NEGATIVE); URINE COLOR ORANGE; URINE GLUCOSE (UA) 2+ (NEGATIVE); URINE KETONE TRACE (NEGATIVE); URINE LEUK ESTERASE 3+ (NEGATIVE); URINE NITRITE NEGATIVE (NEGATIVE); URINE PROTEIN 3+ (NEGATIVE); URINE UROBILINOGEN 0.2 mg/dL (0.2-1.0); URINE WBC 16166 /uL (0-25.8)
[2024-02-26 19:51] LABS: URINE RBC 701.6 /uL (0-23.9); YEAST PRESENT (NEGATIVE)
[2024-02-26] MEDS ORDERED: ATORVASTATIN CA 20 MG TABLET (FP) ONE (21:16)
[2024-02-26] MEDS: INSULIN ASPART SLIDING SCALE (NOVOLOG) 1 VIAL SQ SCH (22:19)
[2024-02-26] MEDS: APIXABAN 5 MG TABLET PO SCH (22:20)
[2024-02-26] MEDS: ATORVASTATIN CA 40 MG TABLET (FP) PO SCH (22:20)
[2024-02-26] MEDS: DONEPEZIL HCL 5 MG TABLET (FP) PO SCH (22:20)
[2024-02-26] MEDS: MAGNESIUM OXIDE 400 MG TABLET (FP) PO SCH (22:20)
[2024-02-26] MEDS: RANOLAZINE E.R. 500 MG TABLET (FP) PO SCH (22:20)
[2024-02-26] MEDS: LATANOPROST 0.005% OPHTH SOLN 2.5ML BOTTLE OD SCH (22:28)
[2024-02-26] MEDS: PATIENT'S OWN MEDICATION (NON-FORMULARY) (Dorzolamide Hcl/Timolol Maleat [Cosopt Eye Drops OD SCH (22:29)
[2024-02-26] MEDS: TIMOLOL 0.5% OPHTHALMIC SOL 5 ML BOTTLE OD SCH (22:55)
[2024-02-26] MEDS: DORZOLAMIDE 2% HCL OPHTHALMIC SOLUTION 10 ML BOTTLE OD SCH (22:56)
[2024-02-27] MEDS: FUROSEMIDE 40 MG TABLET (FP) PO SCH (06:05)
[2024-02-27] MEDS: LEVOTHYROXINE NA 25 MCG TABLET (FP) PO SCH (06:05)
[2024-02-27 08:06] LABS: BASO % 0.7 % (0-2.0); EOS % 1.2 % (0-4.5); HEMATOCRIT 25.5 % (35.4-49); HEMOGLOBIN 8.4 GM/dL (11.7-16.9); LYMPH % 12.6 % (8-40); MCH 30.1 pg (25.7-33.7); MCHC 33.1 g/dl (32.0-35.9); MEAN PLT VOLUME 8.4 fl (7.5-11.1); MONO % 11.8 % (3.8-10.2); NEUT % 73.7 % (42.8-82.8); PLATELET COUNT 272 10^3/uL (134-434); RBC 2.81 M/mm3 (4.00-5.60); RDW 17.4 % (11.9-15.9); WHITE BLOOD COUNT 5.3 K/mm3 (4.0-10.0)
[2024-02-27 08:29] LABS: POTASSIUM 3.3 mmol/L (3.5-5.1)
[2024-02-27 08:36] LABS: CALCIUM 8.4 mg/dL (8.5-10.1)
[2024-02-27 08:37] LABS: BLOOD UREA NITROGEN 19.9 mg/dL (7-18)
[2024-02-27 08:40] LABS: CREATININE 1.2 mg/dL (0.55-1.3)
[2024-02-27 08:42] LABS: BILIRUBIN,TOTAL 0.7 mg/dL (0.2-1)
[2024-02-27 09:08] LABS: ALBUMIN 2.2 g/dl (3.4-5.0)
[2024-02-27] MEDS: PANTOPRAZOLE 20 MG TABLET PO SCH (10:58)
[2024-02-27] MEDS: ESCITALOPRAM OXALATE 10 MG TABLET PO SCH (10:58)
[2024-02-27] MEDS: metoPROLOL SUCCINATE 25 MG TAB.SR.24H (FP) PO SCH (10:58)
[2024-02-27] MEDS: POTASSIUM CHLORIDE ORAL LIQUID 20 MEQ/15 ML PO ONE (14:54)
[2024-02-27] MEDS: LACTATED RINGERS SOLUTION 1,000 ML/1,000 ML INFUS.BAG IV SCH (14:54)
[2024-02-27] MEDS ORDERED: ATORVASTATIN CA 20 MG TABLET (FP) ONE (21:18)
[2024-02-28 09:25] LABS: BASO % 0.6 % (0-2.0); EOS % 1.2 % (0-4.5); HEMATOCRIT 26.9 % (35.4-49); HEMOGLOBIN 9.1 GM/dL (11.7-16.9); LYMPH % 15.3 % (8-40); MCH 30.5 pg (25.7-33.7); MCHC 33.8 g/dl (32.0-35.9); MEAN CELL VOLUME 90.2 fl (80-96); MEAN PLT VOLUME 8.2 fl (7.5-11.1); MONO % 14.6 % (3.8-10.2); NEUT % 68.3 % (42.8-82.8); PLATELET COUNT 297 10^3/uL (134-434); RBC 2.99 M/mm3 (4.00-5.60); RDW 17.5 % (11.9-15.9); WHITE BLOOD COUNT 4.1 K/mm3 (4.0-10.0)
[2024-02-28 09:54] LABS: POTASSIUM 3.5 mmol/L (3.5-5.1)
[2024-02-28 09:56] LABS: BLOOD UREA NITROGEN 18.8 mg/dL (7-18); CALCIUM 8.6 mg/dL (8.5-10.1)
[2024-02-28 09:57] LABS: ALBUMIN 2.2 g/dl (3.4-5.0)
[2024-02-28 10:00] LABS: CREATININE 1.3 mg/dL (0.55-1.3)
[2024-02-28 10:01] LABS: BILIRUBIN,TOTAL 0.8 mg/dL (0.2-1); TOT PROT 5.1 g/dl (6.4-8.2)
[2024-02-28] MEDS: IRON SUCROSE INJECTION 200 MG in SODIUM CHLORIDE 100 ML IVPB ONE (14:17)
[2024-02-28] MEDS ORDERED: IOHEXOL (OMNIPAQUE PO) 12 MG/ML - 500 ML BOTTLE PO ONE (14:29)
[2024-02-29 09:17] LABS: BLOOD UREA NITROGEN 15.1 mg/dL (7-18); CALCIUM 8.7 mg/dL (8.5-10.1)
[2024-02-29 09:17] LABS: HEMATOCRIT 26.4 % (35.4-49); HEMOGLOBIN 8.8 GM/dL (11.7-16.9); MCHC 33.3 g/dl (32.0-35.9); MEAN CELL VOLUME 90.1 fl (80-96); MEAN PLT VOLUME 8.2 fl (7.5-11.1); PLATELET COUNT 295 10^3/uL (134-434); RBC 2.93 M/mm3 (4.00-5.60); RDW 17.3 % (11.9-15.9); WHITE BLOOD COUNT 4.1 K/mm3 (4.0-10.0)
[2024-02-29 09:19] LABS: POTASSIUM 3.2 mmol/L (3.5-5.1)
[2024-02-29 09:21] LABS: CREATININE 1.1 mg/dL (0.55-1.3)
[2024-02-29] MEDS: IRON SUCROSE INJECTION 200 MG in SODIUM CHLORIDE 100 ML IVPB ONE (11:58)
[2024-02-29] MEDS: POTASSIUM CHLORIDE ORAL LIQUID 20 MEQ/15 ML PO ONE (13:34)
[2024-02-29] MEDS: POTASSIUM CHLORIDE ORAL LIQUID 20 MEQ/15 ML PO SCH (22:30)
[2024-02-29] MEDS: MULTIVITAMINS (DAILY MVI) TABLET (FP) PO SCH (22:30)
[2024-02-29] MEDS: ASCORBIC ACID 250 MG TABLET (FP) PO SCH (22:30)
[2024-03-01 08:19] LABS: EOS % 3.2 % (0-4.5); HEMATOCRIT 28.5 % (35.4-49); HEMOGLOBIN 9.5 GM/dL (11.7-16.9); LYMPH % 14.8 % (8-40); MCH 30.3 pg (25.7-33.7); MCHC 33.3 g/dl (32.0-35.9); MONO % 16.9 % (3.8-10.2); NEUT % 64.1 % (42.8-82.8); PLATELET COUNT 317 10^3/uL (134-434); RBC 3.13 M/mm3 (4.00-5.60); RDW 16.8 % (11.9-15.9); WHITE BLOOD COUNT 5.5 K/mm3 (4.0-10.0)
[2024-03-01 08:47] LABS: ALBUMIN 2.2 g/dl (3.4-5.0); BILIRUBIN,TOTAL 1.1 mg/dL (0.2-1); BLOOD UREA NITROGEN 15.4 mg/dL (7-18); CALCIUM 8.9 mg/dL (8.5-10.1); CREATININE 1.2 mg/dL (0.55-1.3); POTASSIUM 3.1 mmol/L (3.5-5.1); TOT PROT 5.3 g/dl (6.4-8.2)
[2024-03-01 14:03] VITALS: BP 144/58; PULSE 54; RESP 18; TEMP 97.3
[2024-03-01] MEDS: POTASSIUM CHLORIDE ORAL LIQUID 20 MEQ/15 ML PO ONE (14:57)
[2024-03-01 22:44] VITALS: BMI 19.8
== END 2024-03-01 16:19 | disposition home or self-care (01) | DRG 812 ==
LOC: JER 11:02 → JERBED 12:56 → J4W 13:54
PROVIDERS: ADMIT Family Medicine; ATTEND Family Medicine
DX: D64.9 Anemia, unspecified (principal); I50.32 Chronic diastolic (congestive) heart failure; I48.11 Longstanding persistent atrial fibrillation; R44.3 Hallucinations, unspecified; R55 Syncope and collapse; I11.0 Hypertensive heart disease with heart failure; E11.42 Type 2 diabetes mellitus with diabetic polyneuropathy; F03.90 Unspecified dementia, unspecified severity, without behavioral disturbance, psychotic disturbance, mood disturbance, and anxiety; E03.9 Hypothyroidism, unspecified; F32.A Depression, unspecified; M17.11 Unilateral primary osteoarthritis, right knee; L89.622 Pressure ulcer of left heel, stage 2; L89.312 Pressure ulcer of right buttock, stage 2; E78.5 Hyperlipidemia, unspecified
CPT/HCPCS: 0241U-QW; 36415; 70450-TC; 71045-TC-FY; 72125-TC; 72170-TC-FY; 73562-TC-RT-FY; 74177-TC; 80048; 80053; 81003; 82272; 82607; 82728; 82962; 83540; 83550; 83605; 83880; 84443; 84484; 85025; 85027; 86140; 87045; 87046; 87077; 87086; 87205; 87209; 87324; 87449; 93005; 93010; 93306-TC; 93880-TC; 97116-GP; 97162-GP; 99283-25; 99285-25; J1756; Q9967